=== PATIENT | female | born 1990 | race African-American/Black ===

== ENCOUNTER 2018-01-10 11:04 | Inpatient (IN) ==
[2018-01-10] MEDS ORDERED: hydrALAZINE 20 MG/1 ML VIAL IV STA (12:14)
[2018-01-10 12:26] LABS: Basophils # 0.1 10*3/uL (0.0-0.2); Basophils % 0.4 % (0.0-0.8); Eosinophils # 0.2 10*3/uL (0.0-0.87); Eosinophils % 1.6 % (0.00-10.9); Hematocrit 30.6 VOL% (35.7-47.0); Hemoglobin 10.5 GM/DL (12.0-16.0); Immature Granulocytes % 0.6 %; Immature Granulocytes Absolute 0.08 #; Lymphocytes # 3.2 10*3/uL (1.4-4.0); Lymphocytes % 24.1 % (21.3-54.2); Mean Corpuscular HGB Conc 34.3 GM/DL (32-36); Mean Corpuscular Hemoglobin 31 PG (27-34); Mean Corpuscular Volume 91.3 FL (87-102); Mean Platelet Volume 9.3 FL (9.6-12.0); Monocytes # 0.8 10*3/uL (0.11-0.8); Monocytes % 5.8 % (1.7-12.7); Neutrophils % 67.5 % (38.7-73.9); Platelet Count 672 T/CUMM (130-400); Red Blood Count 3.35 MC/CUMM (3.8-5.5); Red Cell Distribution Width 11.9 % (9.3-17.3); White Blood Count 13.3 T/CUMM (4-12)
[2018-01-10] MEDS ORDERED: SODIUM CHLORIDE 0.9% 1,000 ML IV STA (12:26)
[2018-01-10 12:37] LABS: Apearance,Urine CLEAR (Clear); Bacteria,Urine Occasional /HPF (Few); Bilirubin,Urine Negative (Negative); Blood, Urine Small mg/dL (Negative); Glucose,Urine (UA) >=500 mg/dL (Negative); Ketones,Urine Negative (Negative); Mucus,Urine Occasional /LPF (Occasional); Nitrite,Urine Negative (Negative); Protein,Urine 100 MG/DL; RBC,Urine 16 /HPF (0-4); Squamous Epithelial Cell,Urine Occasional /HPF (0-10); Urine Color Straw (Yellow); Urine Specific Gravity 1.009 (1.001-1.035); Urine Urobilinogen < 2.0 EU/DL (0.2-1.0); WBC,Urine <1 /HPF (0-6)
[2018-01-10] MEDS ORDERED: INSULIN REGULAR 100 UNIT/ML IV STA ×2 (12:37→14:16)
[2018-01-10 12:53] LABS: Alanine Aminotransferase 30 U/L (13-56); Albumin 2.9 G/DL (3.4-5.0); Alkaline Phosphatase 156 U/L (45-117); Amylase 75 U/L (25-115); Aspartate Amino Transferase 21 U/L (0-37); Bilirubin,Total < 0.39 MG/DL (0.2-1.0); Blood Urea Nitrogen 32 MG/DL (7-18); Calcium 8.8 MG/DL (8.5-10.1); Osmolality,Calculated 289.9 MOS/KG (273-304); Potassium 4.6 MMOL/L (3.5-5.1); Sodium 129 MMOL/L (136-145); Total Protein 8.2 G/DL (6.4-8.3); Troponin I Only < 0.015 NG/ML (0.00-0.045)
[2018-01-10 12:56] LABS: Lactic Acid 1.7 MMOL/L (0.4-2.0)
[2018-01-10 13:03] LABS: Glucose 545 MG/DL (74-106)
[2018-01-10] MEDS ORDERED: PROMETHAZINE 25 MG/1 ML VIAL ONE (13:13)
[2018-01-10] MEDS ORDERED: PROMETHAZINE 25 MG/1 ML VIAL IM STA (13:21)
[2018-01-10 13:32] LABS: ABG Base Excess -5.8 MMOL/L (-2.5-2.5); ABG HCO3 19.6 MMOL/L (20-26); ABG Oxygen Saturation 98.9 % (95-100); ABG PCO2 28.5 MM HG (35-48); ABG PH 7.407 (7.35-7.45); ABG TCO2 16.5 MMOL/L (23-27); Pt O2 Delivery Device Room Air
[2018-01-10] MEDS ORDERED: ACETAMINOPHEN 325 MG TABLET PO PRN (14:46)
[2018-01-10] MEDS ORDERED: GLUCAGON 1 MG VIAL IM PRN (14:46)
[2018-01-10] MEDS ORDERED: DEXTROSE 50% 25 GM/50 ML VIAL IV PRN (14:46)
[2018-01-10 16:36] LABS: HIV Antigen/Antibody Result Nonreactive (Nonreactive)
[2018-01-10] MEDS: INSULIN LISPRO 100 UNIT/ML SUBCUT SCH ×2 (17:14→21:25)
[2018-01-10] MEDS: MULTIVITAMIN (PRENATAL) TABLET PO SCH (17:30)
[2018-01-10] MEDS: SODIUM CHLORIDE 0.9% 1,000 ML IV SCH (17:30)
[2018-01-10 18:08] LABS: Barbiturates Screen,Urine Negative (Negative); Benzodiazepines Screen,Urine Negative (Negative); Cannabinoid Screen,Urine Positive (Negative); Opiate Screen,Urine Negative (Negative); Phencyclidine Screen,Urine Negative (Negative)
[2018-01-10] MEDS: cefTRIAXone 1,000 MG in SYRINGE 1 EACH IV SCH (18:11)
[2018-01-10 18:21] LABS: Calcium 7.9 MG/DL (8.5-10.1); Osmolality,Calculated 280.8 MOS/KG (273-304); Potassium 4.2 MMOL/L (3.5-5.1)
[2018-01-10] MEDS ORDERED: METHYLDOPA 250 MG TABLET PO SCH (21:00)
[2018-01-10] MEDS: ONDANSETRON 4 MG/2 ML VIAL IV PRN (21:17)
[2018-01-10] MEDS: LABETALOL 100 MG TABLET PO SCH (21:25)
[2018-01-10] MEDS: hydrALAZINE 20 MG/1 ML VIAL IV PRN (21:26)
[2018-01-10] MEDS ORDERED: PROMETHAZINE INJ 12.5 MG in SODIUM CHLORIDE 0.9% 50 ML IV PRN (23:01)
[2018-01-11] MEDS: INSULIN LISPRO 100 UNIT/ML SUBCUT SCH ×3 (00:12→09:23)
[2018-01-11] MEDS: SODIUM CHLORIDE 0.9% 1,000 ML IV SCH ×3 (01:13→18:25)
[2018-01-11 05:04] LABS: Alanine Aminotransferase 21 U/L (13-56); Albumin 2.2 G/DL (3.4-5.0); Alkaline Phosphatase 107 U/L (45-117); Aspartate Amino Transferase 20 U/L (0-37); Bilirubin,Total < 0.39 MG/DL (0.2-1.0); Blood Urea Nitrogen 28 MG/DL (7-18); Calcium 7.7 MG/DL (8.5-10.1); Glucose 141 MG/DL (74-106); Osmolality,Calculated 286.4 MOS/KG (273-304); Potassium 4.3 MMOL/L (3.5-5.1); Sodium 140 MMOL/L (136-145); Total Protein 5.8 G/DL (6.4-8.3)
[2018-01-11] MEDS: ONDANSETRON 4 MG/2 ML VIAL IV PRN (07:55)
[2018-01-11] MEDS: LABETALOL 100 MG TABLET PO SCH (09:23)
[2018-01-11 09:43] LABS: Basophils # 0.1 10*3/uL (0.0-0.2); Basophils % 0.4 % (0.0-0.8); Eosinophils # 0.1 10*3/uL (0.0-0.87); Hematocrit 26.8 VOL% (35.7-47.0); Immature Granulocytes % 0.4 %; Immature Granulocytes Absolute 0.06 #; Lymphocytes # 3.2 10*3/uL (1.4-4.0); Lymphocytes % 22.7 % (21.3-54.2); Mean Corpuscular HGB Conc 33.6 GM/DL (32-36); Mean Corpuscular Hemoglobin 32 PG (27-34); Mean Platelet Volume 9.3 FL (9.6-12.0); Monocytes # 0.8 10*3/uL (0.11-0.8); Neutrophils # 9.6 10*3/uL (1.4-7.4); Neutrophils % 69.5 % (38.7-73.9); Platelet Count 568 T/CUMM (130-400); Red Blood Count 2.82 MC/CUMM (3.8-5.5); Red Cell Distribution Width 12.1 % (9.3-17.3); White Blood Count 13.9 T/CUMM (4-12)
[2018-01-11] MEDS ORDERED: INSULIN ASPART PROTAMINE/ASPART 70/30 100 UNIT/ML SUBCUT SCH (10:00)
[2018-01-11 10:42] LABS: Apearance,Urine CLEAR (Clear); Bacteria,Urine Occasional /HPF (Few); Bilirubin,Urine Negative (Negative); Blood, Urine Small mg/dL (Negative); Glucose,Urine (UA) >=500 mg/dL (Negative); Ketones,Urine 20 mg/dL (Negative); Nitrite,Urine Negative (Negative); Protein,Urine 100 MG/DL; RBC,Urine 14 /HPF (0-4); Squamous Epithelial Cell,Urine Occasional /HPF (0-10); Urine Color Straw (Yellow); Urine Specific Gravity 1.008 (1.001-1.035); Urine Urobilinogen < 2.0 EU/DL (0.2-1.0); WBC,Urine 1 /HPF (0-6)
[2018-01-11] MEDS ORDERED: INSULIN LISPRO 100 UNIT/ML SUBCUT SCH (11:30)
[2018-01-11] MEDS: PROMETHAZINE 25 MG TABLET PO PRN ×2 (13:05→20:40)
[2018-01-11] MEDS: MULTIVITAMIN (PRENATAL) TABLET PO SCH (13:09)
[2018-01-11] MEDS: hydrALAZINE 20 MG/1 ML VIAL IV PRN (13:10)
[2018-01-11 13:20] LABS: Calcium 7.8 MG/DL (8.5-10.1); Osmolality,Calculated 287.1 MOS/KG (273-304); Potassium 4.5 MMOL/L (3.5-5.1)
[2018-01-11] MEDS: cefTRIAXone 1,000 MG in SYRINGE 1 EACH IV SCH (14:40)
[2018-01-11] MEDS: hydrALAZINE 25 MG TABLET PO SCH ×2 (16:55→20:40)
[2018-01-11] MEDS: INSULIN REGULAR 100 UNIT/ML SUBCUT SCH ×2 (16:55→20:41)
[2018-01-11] MEDS: INSULIN NPH 100 UNIT/ML SUBCUT SCH (16:55)
[2018-01-11] MEDS: LABETALOL 200 MG TABLET PO SCH (20:40)
[2018-01-12] MEDS: PROMETHAZINE 25 MG TABLET PO PRN ×2 (03:28→09:39)
[2018-01-12 08:21] LABS: Osmolality,Calculated 283.8 MOS/KG (273-304); Potassium 4.1 MMOL/L (3.5-5.1)
[2018-01-12] MEDS: INSULIN NPH 100 UNIT/ML SUBCUT SCH (09:37)
[2018-01-12] MEDS: hydrALAZINE 25 MG TABLET PO SCH ×2 (09:38→15:51)
[2018-01-12] MEDS: MULTIVITAMIN (PRENATAL) TABLET PO SCH (09:38)
[2018-01-12] MEDS: LABETALOL 200 MG TABLET PO SCH (09:38)
[2018-01-12] MEDS: INSULIN REGULAR 100 UNIT/ML SUBCUT SCH ×2 (09:38→12:14)
[2018-01-12 11:35] VITALS: BP 124/66
[2018-01-12] MEDS: SODIUM CHLORIDE 0.9% 1,000 ML IV SCH ×2 (12:15)
[2018-01-12] MEDS: cefTRIAXone 1,000 MG in SYRINGE 1 EACH IV SCH (15:51)
== END 2018-01-12 16:15 | disposition home or self-care (01) | DRG 566 ==
LOC: N.ED 11:04 → N.EDINP 14:17 → N.TELEN 15:06
PROVIDERS: ADMIT Internal Medicine; ATTEND Internal Medicine

== ENCOUNTER 2018-01-31 21:07 | Inpatient (IN) ==
[2018-02-01] MEDS ORDERED: ONDANSETRON 4 MG/2 ML VIAL IV STA (00:10)
[2018-02-01] MEDS ORDERED: SODIUM CHLORIDE 0.9% 1,000 ML IV STA ×2 (00:10→01:42)
[2018-02-01] MEDS ORDERED: ACETAMINOPHEN 500 MG TABLET PO STA (00:10)
[2018-02-01 00:28] LABS: Alanine Aminotransferase 37 U/L (13-56); Albumin 2.5 G/DL (3.4-5.0); Alkaline Phosphatase 167 U/L (45-117); Aspartate Amino Transferase 19 U/L (0-37); Bilirubin,Total < 0.39 MG/DL (0.2-1.0); Blood Urea Nitrogen 22 MG/DL (7-18); Calcium 8.8 MG/DL (8.5-10.1); Glucose 286 MG/DL (74-106); Osmolality,Calculated 280.2 MOS/KG (273-304); Potassium 4.3 MMOL/L (3.5-5.1); Sodium 134 MMOL/L (136-145); Total Protein 7.1 G/DL (6.4-8.3)
[2018-02-01 00:37] LABS: Basophils # 0.1 10*3/uL (0.0-0.2); Basophils % 0.4 % (0.0-0.8); Eosinophils # 0.2 10*3/uL (0.0-0.87); Eosinophils % 1.2 % (0.00-10.9); Hematocrit 21.8 VOL% (35.7-47.0); Hemoglobin 7.3 GM/DL (12.0-16.0); Immature Granulocytes % 0.9 %; Immature Granulocytes Absolute 0.12 #; Lymphocytes # 2.9 10*3/uL (1.4-4.0); Lymphocytes % 21.5 % (21.3-54.2); Mean Corpuscular HGB Conc 33.5 GM/DL (32-36); Mean Corpuscular Hemoglobin 32 PG (27-34); Mean Platelet Volume 9.5 FL (9.6-12.0); Monocytes # 0.9 10*3/uL (0.11-0.8); Monocytes % 6.4 % (1.7-12.7); Neutrophils # 9.5 10*3/uL (1.4-7.4); Neutrophils % 69.6 % (38.7-73.9); Platelet Count 593 T/CUMM (130-400); Red Blood Count 2.32 MC/CUMM (3.8-5.5); Red Cell Distribution Width 12.5 % (9.3-17.3); White Blood Count 13.6 T/CUMM (4-12)
[2018-02-01] MEDS ORDERED: PROMETHAZINE INJ 25 MG in SODIUM CHLORIDE 0.9% 50 ML IV STA (01:53)
[2018-02-01 03:12] LABS: VBG Base Excess -11.9 MEQ/L (0-4); VBG HCO3 14.9 MEQ/L (24-28); VBG Oxygen Saturation 95.8 %; VBG PCO2 28.2 MMHG (41-51); VBG PH 7.293; VBG PO2 89.6 MMHG (17-40)
[2018-02-01 03:57] LABS: Apearance,Urine CLEAR (Clear); Bilirubin,Urine Negative (Negative); Blood, Urine Small mg/dL (Negative); Glucose,Urine (UA) >=500 mg/dL (Negative); Hyaline Casts,Urine 1 /LPF (0-3); Ketones,Urine 5 mg/dL (Negative); Mucus,Urine Occasional /LPF (Occasional); Nitrite,Urine Negative (Negative); Protein,Urine >=500 MG/DL; RBC,Urine 4 /HPF (0-4); Squamous Epithelial Cell,Urine Occasional /HPF (0-10); Urine Color Straw (Yellow); Urine Specific Gravity 1.009 (1.001-1.035); Urine Urobilinogen < 2.0 EU/DL (0.2-1.0); WBC,Urine <1 /HPF (0-6)
[2018-02-01 04:01] LABS: Barbiturates Screen,Urine Negative (Negative); Benzodiazepines Screen,Urine Negative (Negative); Cannabinoid Screen,Urine Positive (Negative); Opiate Screen,Urine Negative (Negative); Phencyclidine Screen,Urine Negative (Negative)
[2018-02-01] MEDS ORDERED: INSULIN REGULAR DRIP 100 ML IV PRN ×2 (04:05→05:30)
[2018-02-01] MEDS ORDERED: INSULIN REGULAR 100 UNIT/ML IV STA (04:05)
[2018-02-01] MEDS ORDERED: hydrALAZINE 20 MG/1 ML VIAL IV STA (04:20)
[2018-02-01] MEDS ORDERED: diphenhydrAMINE 50 MG/1 ML VIAL IV ONE (04:48)
[2018-02-01] MEDS ORDERED: hydrALAZINE 20 MG/1 ML VIAL IV ONE (04:51)
[2018-02-01] MEDS ORDERED: SODIUM BICARB INJ 100 MEQ in STERILE WATER INJ 400 ML IV PRN (04:53)
[2018-02-01] MEDS ORDERED: DEXTROSE 50% 25 GM/50 ML VIAL IV PRN ×3 (04:53→18:53)
[2018-02-01] MEDS ORDERED: MAGNESIUM SULF RIDER 4 GM in PREMIX 1 EACH IV PRN (04:53)
[2018-02-01] MEDS ORDERED: POTASSIUM CHLORIDE RIDER 10 MEQ in PREMIX 1 EACH IV PRN (04:53)
[2018-02-01] MEDS ORDERED: SODIUM PHOSPHATE INJ 15.9 MMOL in SODIUM CHLORIDE 0.9% 250 ML IV PRN (04:53)
[2018-02-01] MEDS ORDERED: ACETAMINOPHEN 325 MG TABLET PO PRN (05:13)
[2018-02-01] MEDS ORDERED: diphenhydrAMINE CAP 25 MG CAPSULE PO PRN (05:19)
[2018-02-01] MEDS: SODIUM CHLORIDE 0.9% 1,000 ML IV SCH ×2 (05:52→08:14)
[2018-02-01 06:21] LABS: ABG Base Excess -9.3 MMOL/L (-2.5-2.5); ABG HCO3 16.8 MMOL/L (20-26); ABG Oxygen Saturation 99.3 % (95-100); ABG PCO2 22.9 MM HG (35-48); ABG PH 7.407 (7.35-7.45); ABG TCO2 13.6 MMOL/L (23-27); Allen Test Positive; Pt O2 Delivery Device Room Air
[2018-02-01 07:02] LABS: Basophils % 0.3 % (0.0-0.8); Eosinophils # 0.1 10*3/uL (0.0-0.87); Eosinophils % 0.9 % (0.00-10.9); Hematocrit 21.5 VOL% (35.7-47.0); Hemoglobin 7.4 GM/DL (12.0-16.0); Immature Granulocytes % 0.4 %; Immature Granulocytes Absolute 0.05 #; Lymphocytes # 2.3 10*3/uL (1.4-4.0); Lymphocytes % 16.3 % (21.3-54.2); Mean Corpuscular HGB Conc 34.4 GM/DL (32-36); Mean Corpuscular Hemoglobin 33 PG (27-34); Mean Corpuscular Volume 94.7 FL (87-102); Mean Platelet Volume 8.9 FL (9.6-12.0); Monocytes # 0.8 10*3/uL (0.11-0.8); Monocytes % 5.5 % (1.7-12.7); Neutrophils # 10.6 10*3/uL (1.4-7.4); Neutrophils % 76.6 % (38.7-73.9); Platelet Count 542 T/CUMM (130-400); Red Blood Count 2.27 MC/CUMM (3.8-5.5); Red Cell Distribution Width 12.5 % (9.3-17.3); White Blood Count 13.8 T/CUMM (4-12)
[2018-02-01 07:19] LABS: % Iron Saturation 18.3 % (18-50); Ferritin 66.2 ng/ml (8-252)
[2018-02-01 07:25] LABS: Folate > 24.0 NG/ML (5.4-24.0); Vitamin B12 1009 PG/ML (211-911)
[2018-02-01 08:13] LABS: Calcium 8.2 MG/DL (8.5-10.1)
[2018-02-01 08:25] LABS: Sedimentation Rate-Westergren 138 MM/HR (0-20)
[2018-02-01 08:28] LABS: Hemoglobin A1 (Alkaline) 97.6 % (96.5-98.5); Hemoglobin A2 (Alkaline) 2.4 % (1.5-3.5)
[2018-02-01] MEDS ORDERED: SODIUM CHLORIDE 0.9% 1,000 ML IV SCH ×2 (09:53→13:30)
[2018-02-01 10:04] LABS: Calcium 7.9 MG/DL (8.5-10.1); Osmolality,Calculated 280.4 MOS/KG (273-304)
[2018-02-01] MEDS: hydrALAZINE 25 MG TABLET PO SCH ×3 (10:10→20:51)
[2018-02-01] MEDS: LABETALOL 200 MG TABLET PO SCH ×2 (10:11→20:51)
[2018-02-01] MEDS: PROMETHAZINE 25 MG/1 ML VIAL IM PRN ×3 (11:35→23:37)
[2018-02-01] MEDS: DEXTROSE 5% NACL 0.9% 1,000 ML IV SCH ×2 (11:45→19:01)
[2018-02-01] MEDS: MULTIVITAMIN (PRENATAL) TABLET PO SCH (11:56)
[2018-02-01 14:02] LABS: Calcium 8.1 MG/DL (8.5-10.1); Osmolality,Calculated 284.8 MOS/KG (273-304); Potassium 4.6 MMOL/L (3.5-5.1)
[2018-02-01] MEDS ORDERED: DEXT 5% NACL 0.45% KCL 20 MEQ 20 MEQ/1,000 ML BAG IV SCH (15:00)
[2018-02-01 17:40] LABS: Osmolality,Calculated 283.4 MOS/KG (273-304)
[2018-02-01] MEDS ORDERED: GLUCAGON 1 MG VIAL IM PRN (18:53)
[2018-02-01] MEDS ORDERED: POTASSIUM CHLORIDE 20 MEQ TABLET PO PRN (20:22)
[2018-02-01] MEDS: INSULIN REGULAR 100 UNIT/ML SUBCUT SCH (20:37)
[2018-02-01] MEDS: SODIUM CHLOR 0.45% KCL 20 MEQ 20 MEQ/1,000 ML BAG IV SCH (20:48)
[2018-02-01 21:52] LABS: Calcium 8.4 MG/DL (8.5-10.1); Potassium 4.5 MMOL/L (3.5-5.1)
[2018-02-01] MEDS ORDERED: SODIUM CHLORIDE 0.45% 1,000 ML IV SCH (21:53)
[2018-02-01] MEDS: hydrALAZINE 20 MG/1 ML VIAL IV PRN (22:04)
[2018-02-02] MEDS: INSULIN REGULAR 100 UNIT/ML SUBCUT SCH ×6 (00:01→20:59)
[2018-02-02 01:01] LABS: Osmolality,Calculated 286.1 MOS/KG (273-304); Potassium 4.7 MMOL/L (3.5-5.1)
[2018-02-02 01:26] LABS: Basophils # 0.1 10*3/uL (0.0-0.2); Basophils % 0.3 % (0.0-0.8); Eosinophils # 0.1 10*3/uL (0.0-0.87); Eosinophils % 0.5 % (0.00-10.9); Hematocrit 21.7 VOL% (35.7-47.0); Hemoglobin 7.1 GM/DL (12.0-16.0); Immature Granulocytes % 1.4 %; Immature Granulocytes Absolute 0.23 #; Lymphocytes # 2.3 10*3/uL (1.4-4.0); Mean Corpuscular HGB Conc 32.7 GM/DL (32-36); Mean Corpuscular Hemoglobin 32 PG (27-34); Mean Corpuscular Volume 96.9 FL (87-102); Mean Platelet Volume 9.3 FL (9.6-12.0); Neutrophils # 12.5 10*3/uL (1.4-7.4); Neutrophils % 77.8 % (38.7-73.9); Platelet Count 554 T/CUMM (130-400); Red Blood Count 2.24 MC/CUMM (3.8-5.5); Red Cell Distribution Width 12.7 % (9.3-17.3); White Blood Count 16.1 T/CUMM (4-12)
[2018-02-02] MEDS: MAGNESIUM SULF RIDER 2 GM in PREMIX 1 EACH IV PRN ×2 (01:51→08:25)
[2018-02-02] MEDS: SODIUM CHLOR 0.45% KCL 20 MEQ 20 MEQ/1,000 ML BAG IV SCH (03:30)
[2018-02-02] MEDS ORDERED: MAGNESIUM SULF RIDER 4 GM in PREMIX 1 EACH IV ONE (07:51)
[2018-02-02] MEDS: PROMETHAZINE 25 MG/1 ML VIAL IM PRN ×3 (08:20→21:22)
[2018-02-02] MEDS: DEXTROSE 5% NACL 0.9% 1,000 ML IV SCH ×2 (08:24→20:10)
[2018-02-02] MEDS: SODIUM BICARBONATE 650 MG TABLET PO SCH ×3 (08:28→20:59)
[2018-02-02] MEDS: hydrALAZINE 25 MG TABLET PO SCH ×3 (08:28→20:59)
[2018-02-02] MEDS: MULTIVITAMIN (PRENATAL) TABLET PO SCH (08:28)
[2018-02-02] MEDS: FLUCONAZOLE 150 MG TABLET PO SCH (08:28)
[2018-02-02] MEDS: LABETALOL 200 MG TABLET PO SCH ×2 (08:28→20:59)
[2018-02-02 14:46] LABS: Osmolality,Calculated 281.1 MOS/KG (273-304); Potassium 4.5 MMOL/L (3.5-5.1)
[2018-02-02] MEDS: hydrALAZINE 20 MG/1 ML VIAL IV PRN (15:42)
[2018-02-03] MEDS: INSULIN REGULAR 100 UNIT/ML SUBCUT SCH ×6 (00:59→20:10)
[2018-02-03] MEDS: PROMETHAZINE 25 MG/1 ML VIAL IM PRN ×4 (03:22→22:07)
[2018-02-03 03:54] LABS: Calcium 8.1 MG/DL (8.5-10.1); Osmolality,Calculated 283.5 MOS/KG (273-304); Potassium 4.3 MMOL/L (3.5-5.1)
[2018-02-03] MEDS: DEXTROSE 5% NACL 0.9% 1,000 ML IV SCH ×3 (04:05→14:45)
[2018-02-03] MEDS: FLUCONAZOLE 150 MG TABLET PO SCH (08:55)
[2018-02-03] MEDS: LABETALOL 200 MG TABLET PO SCH ×2 (08:55→22:04)
[2018-02-03] MEDS: SODIUM BICARBONATE 650 MG TABLET PO SCH ×3 (08:55→22:04)
[2018-02-03] MEDS: hydrALAZINE 25 MG TABLET PO SCH ×3 (08:55→22:04)
[2018-02-03] MEDS: MULTIVITAMIN (PRENATAL) TABLET PO SCH (08:55)
[2018-02-03] MEDS: NIFEdipine 10 MG CAPSULE PO PRN (19:52)
[2018-02-04] MEDS: INSULIN REGULAR 100 UNIT/ML SUBCUT SCH ×3 (00:06→07:53)
[2018-02-04] MEDS: NIFEdipine 10 MG CAPSULE PO PRN (04:15)
[2018-02-04 08:16] LABS: Calcium 7.9 MG/DL (8.5-10.1); Osmolality,Calculated 283.4 MOS/KG (273-304); Potassium 4.4 MMOL/L (3.5-5.1)
[2018-02-04] MEDS ORDERED: GLUCAGON 1 MG VIAL IM PRN (08:47)
[2018-02-04] MEDS ORDERED: DEXTROSE 50% 25 GM/50 ML VIAL IV PRN (08:47)
[2018-02-04] MEDS: PROMETHAZINE 25 MG/1 ML VIAL IM PRN ×2 (09:32→20:02)
[2018-02-04] MEDS: LABETALOL 200 MG TABLET PO SCH ×2 (09:32→21:58)
[2018-02-04] MEDS: MULTIVITAMIN (PRENATAL) TABLET PO SCH (09:32)
[2018-02-04] MEDS: FLUCONAZOLE 150 MG TABLET PO SCH (09:33)
[2018-02-04] MEDS: hydrALAZINE 25 MG TABLET PO SCH ×3 (09:33→21:58)
[2018-02-04] MEDS: SODIUM BICARBONATE 650 MG TABLET PO SCH ×3 (09:33→21:57)
[2018-02-04] MEDS: DEXTROSE 5% NACL 0.9% 1,000 ML IV SCH (10:44)
[2018-02-04] MEDS: INSULIN LISPRO 100 UNIT/ML SUBCUT SCH ×3 (12:21→19:53)
[2018-02-04] MEDS ORDERED: INSULIN LISPRO 100 UNIT/ML SUBCUT SCH (14:00)
[2018-02-04 16:49] LABS: Calcium 7.7 MG/DL (8.5-10.1); Osmolality,Calculated 284.5 MOS/KG (273-304); Potassium 4.3 MMOL/L (3.5-5.1)
[2018-02-04] MEDS ORDERED: INSULIN LISPRO 100 UNIT/ML SUBCUT ONE (23:00)
[2018-02-05] MEDS: INSULIN LISPRO 100 UNIT/ML SUBCUT SCH ×6 (00:47→20:12)
[2018-02-05] MEDS: NIFEdipine 10 MG CAPSULE PO PRN ×2 (00:54→04:33)
[2018-02-05] MEDS: PROMETHAZINE 25 MG/1 ML VIAL IM PRN (04:22)
[2018-02-05 06:49] LABS: Calcium 8.3 MG/DL (8.5-10.1); Calcium 8.4 MG/DL (8.5-10.1); Osmolality,Calculated 282.7 MOS/KG (273-304); Osmolality,Calculated 283.7 MOS/KG (273-304); Potassium 3.8 MMOL/L (3.5-5.1)
[2018-02-05 09:16] LABS: Basophils % 0.3 % (0.0-0.8); Eosinophils # 0.3 10*3/uL (0.0-0.87); Eosinophils % 2.4 % (0.00-10.9); Hematocrit 20.4 VOL% (35.7-47.0); Immature Granulocytes % 0.5 %; Immature Granulocytes Absolute 0.06 #; Lymphocytes # 3.8 10*3/uL (1.4-4.0); Lymphocytes % 28.6 % (21.3-54.2); Mean Corpuscular HGB Conc 34.3 GM/DL (32-36); Mean Corpuscular Hemoglobin 31 PG (27-34); Mean Corpuscular Volume 91.5 FL (87-102); Mean Platelet Volume 8.7 FL (9.6-12.0); Monocytes # 0.9 10*3/uL (0.11-0.8); Monocytes % 6.8 % (1.7-12.7); Neutrophils # 8.1 10*3/uL (1.4-7.4); Neutrophils % 61.4 % (38.7-73.9); Platelet Count 516 T/CUMM (130-400); Red Blood Count 2.23 MC/CUMM (3.8-5.5); Red Cell Distribution Width 12.6 % (9.3-17.3); White Blood Count 13.1 T/CUMM (4-12)
[2018-02-05] MEDS: LABETALOL 200 MG TABLET PO SCH ×3 (09:45→21:28)
[2018-02-05] MEDS: hydrALAZINE 25 MG TABLET PO SCH ×4 (09:45→21:28)
[2018-02-05] MEDS: SODIUM BICARBONATE 650 MG TABLET PO SCH ×4 (09:45→21:28)
[2018-02-05] MEDS: MULTIVITAMIN (PRENATAL) TABLET PO SCH (09:47)
[2018-02-05] MEDS: amLODIPine 5 MG TABLET PO SCH (09:47)
[2018-02-05] MEDS ORDERED: ONDANSETRON 4 MG TABLET PO PRN (09:56)
[2018-02-05] MEDS: PROMETHAZINE 25 MG TABLET PO PRN ×2 (12:13→20:24)
[2018-02-05 17:20] LABS: Apearance,Urine Slightly Hazy (Clear); Bacteria,Urine Occasional /HPF (Few); Bilirubin,Urine Negative (Negative); Blood, Urine Small mg/dL (Negative); Glucose,Urine (UA) 150 mg/dL (Negative); Ketones,Urine Negative (Negative); Mucus,Urine Occasional /LPF (Occasional); Nitrite,Urine Negative (Negative); Protein,Urine >=500 MG/DL; RBC,Urine 8 /HPF (0-4); Squamous Epithelial Cell,Urine Occasional /HPF (0-10); Urine Color Yellow (Yellow); Urine Specific Gravity 1.007 (1.001-1.035); Urine Urobilinogen < 2.0 EU/DL (0.2-1.0); WBC,Urine 2 /HPF (0-6)
[2018-02-06] MEDS: NIFEdipine 10 MG CAPSULE PO PRN (00:09)
[2018-02-06] MEDS: INSULIN LISPRO 100 UNIT/ML SUBCUT SCH ×4 (02:38→12:41)
[2018-02-06 06:52] LABS: Calcium 8.1 MG/DL (8.5-10.1); Osmolality,Calculated 284.7 MOS/KG (273-304); Potassium 4.2 MMOL/L (3.5-5.1)
[2018-02-06] MEDS: PROMETHAZINE 25 MG TABLET PO PRN (07:51)
[2018-02-06] MEDS: amLODIPine 5 MG TABLET PO SCH ×2 (08:15→09:39)
[2018-02-06] MEDS: LABETALOL 200 MG TABLET PO SCH (08:15)
[2018-02-06] MEDS: SODIUM BICARBONATE 650 MG TABLET PO SCH (08:15)
[2018-02-06] MEDS: hydrALAZINE 25 MG TABLET PO SCH (08:15)
[2018-02-06] MEDS: MULTIVITAMIN (PRENATAL) TABLET PO SCH (08:15)
[2018-02-06] MEDS ORDERED: amLODIPine 10 MG TABLET PO SCH (09:05)
[2018-02-06] MEDS ORDERED: IRON (CARBONYL)/VIT C/B12/FA TABLET PO SCH (09:30)
[2018-02-06 09:58] VITALS: BP 146/76
== END 2018-02-06 14:15 | disposition home or self-care (01) | DRG 566 ==
LOC: N.ED 21:07 → N.EDINP 02-01 04:46 → SUATTDRO 02-01 04:46 → N.CC 02-01 07:08 → N.OB 02-03 14:58
PROVIDERS: ADMIT Internal Medicine; ATTEND Internal Medicine

== ENCOUNTER 2019-01-10 13:53 | Inpatient (IN) ==
[2019-01-10] MEDS ORDERED: diphenhydrAMINE 50 MG/1 ML VIAL IV STA (15:58)
[2019-01-10] MEDS ORDERED: methylPREDNISolone SOD SUC 125 MG/2 ML VIAL IV STA (16:05)
[2019-01-10] MEDS ORDERED: FAMOTIDINE 20 MG/2 ML VIAL IV STA (16:05)
[2019-01-10] MEDS ORDERED: FAMOTIDINE 20 MG/2 ML VIAL IV ONE (16:25)
[2019-01-10] MEDS ORDERED: hydrALAZINE 20 MG/1 ML VIAL IV STA ×2 (16:41→17:08)
[2019-01-10] MEDS ORDERED: hydrALAZINE 20 MG/1 ML VIAL ONE ×2 (16:45→17:15)
[2019-01-10] MEDS ORDERED: METOCLOPRAMIDE 10 MG/2 ML VIAL IV STA (17:08)
[2019-01-10 17:17] LABS: Apearance,Urine CLEAR (Clear); Bacteria,Urine Occasional /HPF (Few); Bilirubin,Urine Negative (Negative); Blood, Urine Negative (Negative); Glucose,Urine (UA) 150 mg/dL (Negative); Hyaline Casts,Urine 1 /LPF (0-3); Ketones,Urine 5 mg/dL (Negative); Mucus,Urine Occasional /LPF (Occasional); Nitrite,Urine Negative (Negative); Protein,Urine >=500 MG/DL; RBC,Urine 7 /HPF (0-4); Squamous Epithelial Cell,Urine Occasional /HPF (0-10); Urine Color Yellow (Yellow); Urine Specific Gravity 1.012 (1.001-1.035); Urine Urobilinogen < 2.0 EU/DL (0.2-1.0); WBC,Urine 2 /HPF (0-6)
[2019-01-10 17:22] LABS: Barbiturates Screen,Urine Negative (Negative); Benzodiazepines Screen,Urine Negative (Negative); Cannabinoid Screen,Urine Positive (Negative); Opiate Screen,Urine Positive (Negative); Phencyclidine Screen,Urine Negative (Negative)
[2019-01-10 17:30] LABS: Basophils % 0.2 % (0.0-0.8); Eosinophils # 1.3 10*3/uL (0.0-0.87); Eosinophils % 10.3 % (0.00-10.9); Hematocrit 33.1 VOL% (35.7-47.0); Hemoglobin 10.2 GM/DL (12.0-16.0); Immature Granulocytes % 0.6 %; Immature Granulocytes Absolute 0.07 #; Lymphocytes # 1.6 10*3/uL (1.4-4.0); Lymphocytes % 12.6 % (21.3-54.2); Mean Corpuscular HGB Conc 30.8 GM/DL (32-36); Mean Corpuscular Volume 102.5 FL (87-102); Mean Platelet Volume 8.3 FL (9.6-12.0); Monocytes % 4.3 % (1.7-12.7); Platelet Count 479 T/CUMM (130-400); Red Blood Count 3.23 MC/CUMM (3.8-5.5); Red Cell Distribution Width 15.4 % (9.3-17.3); White Blood Count 12.3 T/CUMM (4-12)
[2019-01-10 17:51] LABS: Calcium 8.6 MG/DL (8.5-10.1); Osmolality,Calculated 291.5 MOS/KG (273-304)
[2019-01-10] MEDS ORDERED: DEXTROSE 10% 25 GM/250 ML BAG IV PRN (18:02)
[2019-01-10] MEDS ORDERED: GLUCAGON 1 MG VIAL IM PRN ×2 (18:02→18:04)
[2019-01-10] MEDS ORDERED: ACETAMINOPHEN 325 MG TABLET PO PRN (18:04)
[2019-01-10] MEDS ORDERED: ONDANSETRON 4 MG/2 ML VIAL IV PRN (18:04)
[2019-01-10] MEDS ORDERED: DEXTROSE 50% 25 GM/50 ML VIAL IV PRN (18:04)
[2019-01-10] MEDS ORDERED: ALBUTEROL 2.5 MG/3 ML NEB RESP TX PRN (18:04)
[2019-01-10] MEDS ORDERED: NICOTINE 21 MG/24 HR PATCH TRANSDERM PRN (18:04)
[2019-01-10 19:00] LABS: Eosinophils 9 % (0-10); Lymphocytes 12 % (20-55); Nucleated Red Blood Cells 1 (0-5); Segmented Neutrophils 78 % (50-85); Total Cells Counted 100
[2019-01-10 19:01] LABS: Hypochromasia Slight; Macrocytosis 1+; Platelet Estimate Adequate
[2019-01-10] MEDS ORDERED: FAMOTIDINE INJ 40 MG in SODIUM CHLORIDE 0.9% 100 ML IV SCH (20:00)
[2019-01-10] MEDS: diphenhydrAMINE 50 MG/1 ML VIAL IV SCH (20:13)
[2019-01-10] MEDS: hydrALAZINE 25 MG TABLET PO SCH (20:13)
[2019-01-10] MEDS: methylPREDNISolone SOD SUC 40 MG/1 ML VIAL IV SCH (20:16)
[2019-01-10] MEDS: niCARdipine INJ 25 MG in SODIUM CHLORIDE 0.9% 240 ML IV PRN (20:55)
[2019-01-10] MEDS: INSULIN REGULAR 100 UNIT/ML SUBCUT SCH (22:16)
[2019-01-10] MEDS: INSULIN GLARGINE 100 UNIT/ML SUBCUT SCH (22:17)
[2019-01-10] MEDS: BENZOCAINE 20% ORAL GEL 11.9 GM TUBE TOP PRN (23:40)
[2019-01-11] MEDS: METOCLOPRAMIDE 10 MG/2 ML VIAL IV PRN ×2 (00:36→07:19)
[2019-01-11] MEDS: methylPREDNISolone SOD SUC 40 MG/1 ML VIAL IV SCH ×2 (00:40→06:37)
[2019-01-11] MEDS: diphenhydrAMINE 50 MG/1 ML VIAL IV SCH (03:25)
[2019-01-11] MEDS: niCARdipine INJ 25 MG in SODIUM CHLORIDE 0.9% 240 ML IV PRN ×3 (03:57→18:38)
[2019-01-11 05:57] LABS: Basophils % 0.2 % (0.0-0.8); Immature Granulocytes % 0.5 %; Immature Granulocytes Absolute 0.06 #; Lymphocytes # 0.8 10*3/uL (1.4-4.0); Lymphocytes % 7.3 % (21.3-54.2); Mean Corpuscular HGB Conc 32.3 GM/DL (32-36); Mean Corpuscular Volume 100.6 FL (87-102); Mean Platelet Volume 8.7 FL (9.6-12.0); Platelet Count 509 T/CUMM (130-400); Red Blood Count 3.08 MC/CUMM (3.8-5.5); Red Cell Distribution Width 15.2 % (9.3-17.3); White Blood Count 11.1 T/CUMM (4-12)
[2019-01-11 06:30] LABS: Lymphocytes 5 % (20-55); Nucleated Red Blood Cells 1 (0-5); Platelet Estimate Increased; Segmented Neutrophils 95 % (50-85); Total Cells Counted 100
[2019-01-11 06:31] LABS: Hypochromasia 1+
[2019-01-11 06:32] LABS: Macrocytosis Slight
[2019-01-11] MEDS: BENZOCAINE 20% ORAL GEL 11.9 GM TUBE TOP PRN (06:37)
[2019-01-11 06:58] LABS: Albumin 2.5 G/DL (3.4-5.0); Bilirubin,Total 0.6 MG/DL (0.2-1.0); Calcium 8.8 MG/DL (8.5-10.1); Osmolality,Calculated 299.7 MOS/KG (273-304); Total Protein 7.4 G/DL (6.4-8.3)
[2019-01-11] MEDS: INSULIN REGULAR 100 UNIT/ML SUBCUT SCH ×6 (07:18→22:50)
[2019-01-11] MEDS ORDERED: LACTATED RINGERS 2,000 ML IV ONE (07:35)
[2019-01-11] MEDS ORDERED: cloNIDine 0.1 MG TABLET PO PRN (07:36)
[2019-01-11] MEDS ORDERED: methylPREDNISolone SOD SUC 40 MG/1 ML VIAL IV SCH (08:00)
[2019-01-11] MEDS: hydrALAZINE 25 MG TABLET PO SCH ×3 (09:12→20:56)
[2019-01-11] MEDS: diphenhydrAMINE CAP 25 MG CAPSULE PO SCH ×3 (09:12→20:56)
[2019-01-11] MEDS: amLODIPine 10 MG TABLET PO SCH (09:12)
[2019-01-11] MEDS: FAMOTIDINE 20 MG TABLET PO SCH (09:13)
[2019-01-11] MEDS: LACTATED RINGERS 1,000 ML IV SCH ×4 (09:39→18:07)
[2019-01-11] MEDS ORDERED: SODIUM CHLORIDE 0.9% 1,000 ML IV ONE (09:39)
[2019-01-11] MEDS: IRON (CARBONYL)/VIT C/B12/FA TABLET PO SCH (11:00)
[2019-01-11] MEDS: TRIAMCINOLONE 0.025% CREAM 15 GM TUBE TOP SCH ×2 (18:37→20:58)
[2019-01-11] MEDS: INSULIN GLARGINE 100 UNIT/ML SUBCUT SCH (20:57)
[2019-01-12] MEDS: niCARdipine INJ 25 MG in SODIUM CHLORIDE 0.9% 240 ML IV PRN ×2 (00:34→05:04)
[2019-01-12] MEDS: diphenhydrAMINE CAP 25 MG CAPSULE PO SCH ×4 (02:31→21:13)
[2019-01-12] MEDS: INSULIN REGULAR 100 UNIT/ML SUBCUT SCH ×2 (02:31→06:26)
[2019-01-12] MEDS ORDERED: INSULIN REGULAR 100 UNIT/ML SUBCUT SCH (08:00)
[2019-01-12] MEDS: LACTATED RINGERS 1,000 ML IV SCH ×3 (08:23→11:19)
[2019-01-12] MEDS ORDERED: PERMETHRIN 1% LOTION 59 ML BOTTLE TOP ONE (08:48)
[2019-01-12 08:54] LABS: Alanine Aminotransferase 25 U/L (13-56); Albumin 2.6 G/DL (3.4-5.0); Alkaline Phosphatase 145 U/L (45-117); Aspartate Amino Transferase 21 U/L (0-37); Bilirubin,Total < 0.39 MG/DL (0.2-1.0); Blood Urea Nitrogen 21 MG/DL (7-18); Calcium 8.4 MG/DL (8.5-10.1); Glucose 119 MG/DL (74-106); Osmolality,Calculated 282.4 MOS/KG (273-304); Total Protein 7.4 G/DL (6.4-8.3)
[2019-01-12] MEDS: CARVEDILOL 6.25 MG TABLET PO SCH ×2 (08:59→21:14)
[2019-01-12] MEDS: amLODIPine 10 MG TABLET PO SCH (08:59)
[2019-01-12] MEDS: FAMOTIDINE 20 MG TABLET PO SCH (09:00)
[2019-01-12] MEDS ORDERED: methylPREDNISolone SOD SUC 40 MG/1 ML VIAL IV SCH (09:00)
[2019-01-12] MEDS: hydrALAZINE 25 MG TABLET PO SCH ×3 (09:00→21:13)
[2019-01-12] MEDS: cloNIDine 0.1 MG TABLET PO SCH ×2 (09:00→21:13)
[2019-01-12] MEDS: IRON (CARBONYL)/VIT C/B12/FA TABLET PO SCH (09:04)
[2019-01-12] MEDS: TRIAMCINOLONE 0.025% CREAM 15 GM TUBE TOP SCH ×4 (10:22→21:14)
[2019-01-12] MEDS: INSULIN LISPRO 100 UNIT/ML SUBCUT SCH ×3 (11:33→21:14)
[2019-01-12] MEDS: PERMETHRIN 5% CREAM 60 GM TUBE TOP ONE ×2 (13:16→14:26)
[2019-01-12] MEDS: NIFEdipine 10 MG CAPSULE PO PRN (15:14)
[2019-01-12] MEDS ORDERED: POTASSIUM CHLORIDE 20 MEQ TABLET PO SCH (16:00)
[2019-01-12] MEDS: INSULIN GLARGINE 100 UNIT/ML SUBCUT SCH (21:14)
[2019-01-13] MEDS: diphenhydrAMINE CAP 25 MG CAPSULE PO SCH ×3 (01:01→13:57)
[2019-01-13] MEDS: LACTATED RINGERS 1,000 ML IV SCH (04:23)
[2019-01-13 05:01] LABS: Basophils % 0.3 % (0.0-0.8); Eosinophils # 1.3 10*3/uL (0.0-0.87); Eosinophils % 9.5 % (0.00-10.9); Hematocrit 25.7 VOL% (35.7-47.0); Hemoglobin 8.1 GM/DL (12.0-16.0); Immature Granulocytes % 0.4 %; Immature Granulocytes Absolute 0.06 #; Lymphocytes # 2.8 10*3/uL (1.4-4.0); Lymphocytes % 20.5 % (21.3-54.2); Mean Corpuscular HGB Conc 31.5 GM/DL (32-36); Mean Corpuscular Volume 100.4 FL (87-102); Mean Platelet Volume 8.6 FL (9.6-12.0); Monocytes % 6.7 % (1.7-12.7); Neutrophils % 62.6 % (38.7-73.9); Platelet Count 429 T/CUMM (130-400); Red Blood Count 2.56 MC/CUMM (3.8-5.5); Red Cell Distribution Width 15.1 % (9.3-17.3); White Blood Count 13.5 T/CUMM (4-12)
[2019-01-13 05:16] LABS: Calcium 8.1 MG/DL (8.5-10.1); Osmolality,Calculated 282.3 MOS/KG (273-304)
[2019-01-13 06:08] VITALS: BP 170/98
[2019-01-13] MEDS: INSULIN LISPRO 100 UNIT/ML SUBCUT SCH ×3 (08:23→16:03)
[2019-01-13] MEDS: TRIAMCINOLONE 0.025% CREAM 15 GM TUBE TOP SCH ×2 (09:31→13:56)
[2019-01-13] MEDS: IRON (CARBONYL)/VIT C/B12/FA TABLET PO SCH (09:32)
[2019-01-13] MEDS: CARVEDILOL 6.25 MG TABLET PO SCH (09:32)
[2019-01-13] MEDS: hydrALAZINE 25 MG TABLET PO SCH ×2 (09:32→14:20)
[2019-01-13] MEDS: amLODIPine 10 MG TABLET PO SCH (09:32)
[2019-01-13] MEDS: FAMOTIDINE 20 MG TABLET PO SCH (09:32)
[2019-01-13] MEDS: METOCLOPRAMIDE 10 MG/2 ML VIAL IV PRN ×2 (10:08→15:22)
[2019-01-13] MEDS: NIFEdipine 10 MG CAPSULE PO PRN ×2 (10:57→15:22)
== END 2019-01-13 16:17 | disposition home or self-care (01) | DRG 811 ==
LOC: N.EDINP 13:53 → N.ED 13:53 → N.EDINP 18:38 → N.ICU 19:17 → SUATTDRO 01-11 09:03
PROVIDERS: ADMIT Internal Medicine; ATTEND Internal Medicine Cardiovascular Disease

== ENCOUNTER 2019-04-16 17:12 | Inpatient (IN) ==
[2019-04-16] MEDS ORDERED: ONDANSETRON 4 MG/2 ML VIAL IV STA (18:00)
[2019-04-16] MEDS ORDERED: METOCLOPRAMIDE 10 MG/2 ML VIAL IV STA (18:00)
[2019-04-16] MEDS ORDERED: DICYCLOMINE 20 MG/2 ML AMP IM ONE (18:00)
[2019-04-16] MEDS ORDERED: hydrALAZINE 20 MG/1 ML VIAL IV STA (18:03)
[2019-04-16 18:14] LABS: Basophils # 0.1 10*3/uL (0.0-0.2); Basophils % 0.3 % (0.0-0.8); Eosinophils # 0.6 10*3/uL (0.0-0.87); Eosinophils % 3.3 % (0.00-10.9); Hematocrit 21.1 VOL% (35.7-47.0); Immature Granulocytes % 0.6 %; Lymphocytes # 1.5 10*3/uL (1.4-4.0); Lymphocytes % 8.3 % (21.3-54.2); Mean Corpuscular HGB Conc 33.2 GM/DL (32-36); Mean Corpuscular Volume 101.4 FL (87-102); Monocytes % 3.7 % (1.7-12.7); Neutrophils % 83.8 % (38.7-73.9); Platelet Count 608 T/CUMM (130-400); Red Blood Count 2.08 MC/CUMM (3.8-5.5); White Blood Count 17.7 T/CUMM (4-12)
[2019-04-16 18:15] LABS: Apearance,Urine CLEAR (Clear); Bilirubin,Urine Negative (Negative); Blood, Urine Negative (Negative); Glucose,Urine (UA) 150 mg/dL (Negative); Ketones,Urine Negative (Negative); Nitrite,Urine Negative (Negative); Protein,Urine >=500 MG/DL; RBC,Urine 15 /HPF (0-4); Squamous Epithelial Cell,Urine Occasional /HPF (0-10); Urine Color Yellow (Yellow); Urine Specific Gravity 1.011 (1.001-1.035); Urine Urobilinogen < 2.0 EU/DL (0.2-1.0); WBC,Urine 5 /HPF (0-6)
[2019-04-16 18:27] LABS: Alanine Aminotransferase 56 U/L (13-56); Albumin 2.9 G/DL (3.4-5.0); Alkaline Phosphatase 165 U/L (45-117); Amylase 48 U/L (25-115); Aspartate Amino Transferase 39 U/L (0-37); Blood Urea Nitrogen 48 MG/DL (7-18); Calcium 9.3 MG/DL (8.5-10.1); Estimated Glom Filtration Rate 5 ML/MIN; Glucose 77 MG/DL (74-106); Total Protein 7.4 G/DL (6.4-8.3)
[2019-04-16 18:45] LABS: Barbiturates Screen,Urine Negative (Negative); Benzodiazepines Screen,Urine Negative (Negative); Cannabinoid Screen,Urine Positive (Negative); Opiate Screen,Urine Positive (Negative); Phencyclidine Screen,Urine Negative (Negative)
[2019-04-16] MEDS ORDERED: PROMETHAZINE 25 MG/1 ML VIAL IM STA (19:19)
[2019-04-16] MEDS ORDERED: HYDROmorphone 2 MG/1 ML VIAL IV STA (20:57)
[2019-04-16] MEDS ORDERED: DEXTROSE 50% 25 GM/50 ML VIAL IV PRN (22:10)
[2019-04-16] MEDS ORDERED: GLUCAGON 1 MG VIAL IM PRN (22:10)
[2019-04-16] MEDS: HYDROmorphone 2 MG/1 ML VIAL IV PRN (22:40)
[2019-04-16 22:50] LABS: Basophils # 0.1 10*3/uL (0.0-0.2); Basophils % 0.4 % (0.0-0.8); Eosinophils # 0.4 10*3/uL (0.0-0.87); Eosinophils % 2.2 % (0.00-10.9); Hemoglobin 6.9 GM/DL (12.0-16.0); Immature Granulocytes % 0.7 %; Immature Granulocytes Absolute 0.12 #; Lymphocytes # 2.1 10*3/uL (1.4-4.0); Lymphocytes % 12.7 % (21.3-54.2); Mean Corpuscular HGB Conc 31.4 GM/DL (32-36); Mean Corpuscular Volume 105.3 FL (87-102); Mean Platelet Volume 8.4 FL (9.6-12.0); Monocytes % 5.7 % (1.7-12.7); Neutrophils % 78.3 % (38.7-73.9); Platelet Count 560 T/CUMM (130-400); Red Blood Count 2.09 MC/CUMM (3.8-5.5); Red Cell Distribution Width 16.2 % (9.3-17.3); White Blood Count 16.7 T/CUMM (4-12)
[2019-04-16 23:11] LABS: Troponin I 0.018 NG/ML (0.00-0.045)
[2019-04-16 23:21] LABS: Folate 19.3 NG/ML (5.4-24.0); Vitamin B12 1114 PG/ML (211-911)
[2019-04-16] MEDS: PANTOPRAZOLE 40 MG VIAL IV SCH (23:41)
[2019-04-16] MEDS: carvediloL 6.25 MG TABLET PO SCH (23:43)
[2019-04-16] MEDS: PIPERACILLIN/TAZOBACTAM 3,375 MG in SODIUM CHLORIDE 0.9% 100 ML IV SCH (23:44)
[2019-04-17 00:04] LABS: Sedimentation Rate-Westergren 130 MM/HR (0-20)
[2019-04-17] MEDS: INSULIN LISPRO 100 UNIT/ML SUBCUT SCH ×5 (00:07→18:21)
[2019-04-17] MEDS: hydrOXYzine HCL 25 MG TABLET PO PRN ×3 (01:23→21:42)
[2019-04-17] MEDS ORDERED: VANCOMYCIN INJ 1,500 MG in SODIUM CHLORIDE 0.9% 500 ML IV ONE (04:00)
[2019-04-17] MEDS: HYDROmorphone 2 MG/1 ML VIAL IV PRN ×3 (04:30→20:27)
[2019-04-17 05:52] LABS: Hematocrit 19.1 VOL% (35.7-47.0)
[2019-04-17 06:00] LABS: Hemoglobin 6.2 GM/DL (12.0-16.0)
[2019-04-17] MEDS ORDERED: SODIUM CHLORIDE 0.9% 1,000 ML IV PRN ×2 (06:37→12:09)
[2019-04-17 09:51] LABS: Hematocrit 19.4 VOL% (35.7-47.0)
[2019-04-17] MEDS: PANTOPRAZOLE 40 MG VIAL IV SCH ×2 (09:54→21:47)
[2019-04-17] MEDS: carvediloL 6.25 MG TABLET PO SCH ×2 (09:54→17:33)
[2019-04-17 09:59] LABS: Hemoglobin 6.2 GM/DL (12.0-16.0)
[2019-04-17 10:24] LABS: Troponin I < 0.015 NG/ML (0.00-0.045)
[2019-04-17 10:45] LABS: Hemoglobin A1 (Alkaline) 97.4 % (96.5-98.5); Hemoglobin A2 (Alkaline) 2.6 % (1.5-3.5)
[2019-04-17] MEDS: PIPERACILLIN/TAZOBACTAM 3,375 MG in SODIUM CHLORIDE 0.9% 100 ML IV SCH ×2 (15:28→21:50)
[2019-04-17] MEDS ORDERED: HEPARIN 10,000 UNIT/10 ML VIAL IV SCH (17:30)
[2019-04-17 19:05] LABS: Hematocrit 27.6 VOL% (35.7-47.0)
[2019-04-17] MEDS ORDERED: VANCOMYCIN INJ 500 MG in SODIUM CHLORIDE 0.9% 100 ML IV PRN (21:00)
[2019-04-17] MEDS: INSULIN GLARGINE 100 UNIT/ML SUBCUT SCH ×2 (21:45)
[2019-04-17] MEDS ORDERED: ACETAMINOPHEN 325 MG TABLET PO PRN (22:25)
[2019-04-17] MEDS ORDERED: CALCIUM CARBONATE CHEW 500 MG TABLET PO ONE (23:01)
[2019-04-18] MEDS: HYDROmorphone 2 MG/1 ML VIAL IV PRN ×5 (00:58→21:10)
[2019-04-18] MEDS: INSULIN LISPRO 100 UNIT/ML SUBCUT SCH ×5 (01:03→22:20)
[2019-04-18] MEDS ORDERED: VANCOMYCIN INJ 500 MG in SODIUM CHLORIDE 0.9% 100 ML IV ONE (09:00)
[2019-04-18] MEDS: carvediloL 6.25 MG TABLET PO SCH (09:58)
[2019-04-18] MEDS: PANTOPRAZOLE 40 MG VIAL IV SCH ×2 (09:58→21:14)
[2019-04-18] MEDS: PIPERACILLIN/TAZOBACTAM 3,375 MG in SODIUM CHLORIDE 0.9% 100 ML IV SCH (11:23)
[2019-04-18] MEDS: ONDANSETRON 4 MG/2 ML VIAL IV PRN (11:25)
[2019-04-18] MEDS: PROMETHAZINE 25 MG TABLET PO PRN ×2 (12:31→22:06)
[2019-04-18 13:05] LABS: Basophils # 0.1 10*3/uL (0.0-0.2); Basophils % 0.6 % (0.0-0.8); Eosinophils # 1.3 10*3/uL (0.0-0.87); Eosinophils % 9.9 % (0.00-10.9); Hematocrit 27.5 VOL% (35.7-47.0); Hemoglobin 8.9 GM/DL (12.0-16.0); Immature Granulocytes % 0.5 %; Immature Granulocytes Absolute 0.06 #; Lymphocytes # 1.4 10*3/uL (1.4-4.0); Lymphocytes % 11.2 % (21.3-54.2); Mean Corpuscular HGB Conc 32.4 GM/DL (32-36); Mean Corpuscular Volume 96.8 FL (87-102); Mean Platelet Volume 8.4 FL (9.6-12.0); Monocytes % 6.2 % (1.7-12.7); Neutrophils % 71.6 % (38.7-73.9); Platelet Count 440 T/CUMM (130-400); Red Blood Count 2.84 MC/CUMM (3.8-5.5); Red Cell Distribution Width 17.8 % (9.3-17.3); White Blood Count 12.7 T/CUMM (4-12)
[2019-04-18] MEDS: carvediloL 12.5 MG TABLET PO SCH (16:45)
[2019-04-18] MEDS: hydrOXYzine HCL 25 MG TABLET PO PRN (16:45)
[2019-04-18] MEDS: traMADol 50 MG TABLET PO PRN (19:27)
[2019-04-18] MEDS: INSULIN GLARGINE 100 UNIT/ML SUBCUT SCH (21:11)
[2019-04-19] MEDS: HYDROmorphone 2 MG/1 ML VIAL IV PRN ×3 (03:10→16:39)
[2019-04-19] MEDS: ONDANSETRON 4 MG/2 ML VIAL IV PRN (04:09)
[2019-04-19 06:16] LABS: Basophils # 0.1 10*3/uL (0.0-0.2); Basophils % 0.7 % (0.0-0.8); Eosinophils # 1.2 10*3/uL (0.0-0.87); Eosinophils % 11.4 % (0.00-10.9); Hematocrit 26.6 VOL% (35.7-47.0); Hemoglobin 8.6 GM/DL (12.0-16.0); Immature Granulocytes % 0.6 %; Immature Granulocytes Absolute 0.06 #; Lymphocytes # 1.6 10*3/uL (1.4-4.0); Mean Corpuscular HGB Conc 32.3 GM/DL (32-36); Mean Corpuscular Volume 97.1 FL (87-102); Mean Platelet Volume 8.8 FL (9.6-12.0); Monocytes % 6.2 % (1.7-12.7); Neutrophils % 66.1 % (38.7-73.9); Platelet Count 432 T/CUMM (130-400); Red Blood Count 2.74 MC/CUMM (3.8-5.5); Red Cell Distribution Width 17.4 % (9.3-17.3); White Blood Count 10.7 T/CUMM (4-12)
[2019-04-19 06:37] LABS: Calcium 9.1 MG/DL (8.5-10.1); Osmolality,Calculated 287.5 MOS/KG (273-304)
[2019-04-19 06:42] LABS: Eosinophils 15 % (0-10); Lymphocytes 16 % (20-55); Segmented Neutrophils 61 % (50-85); Total Cells Counted 100
[2019-04-19 06:43] LABS: Anisocytosis 2+; Platelet Estimate Normal; Polychromasia Slight
[2019-04-19] MEDS: INSULIN LISPRO 100 UNIT/ML SUBCUT SCH ×3 (08:09→17:11)
[2019-04-19] MEDS: traMADol 50 MG TABLET PO PRN ×2 (08:10→18:25)
[2019-04-19] MEDS: carvediloL 12.5 MG TABLET PO SCH (09:23)
[2019-04-19] MEDS: PANTOPRAZOLE 40 MG VIAL IV SCH (09:25)
[2019-04-19] MEDS ORDERED: carvediloL 25 MG TABLET PO SCH (17:00)
[2019-04-19] MEDS: PROMETHAZINE 25 MG TABLET PO PRN (18:25)
[2019-04-19 19:18] VITALS: BP 173/95
== END 2019-04-19 20:22 | disposition home or self-care (01) | DRG 73 ==
LOC: EDUNIT# → EDBD → N.ED 17:12 → N.EDINP 20:58 → SUATTDRO 20:58 → N.2E 21:39
PROVIDERS: ADMIT Internal Medicine; ATTEND Internal Medicine Cardiovascular Disease

== ENCOUNTER 2019-05-09 14:17 | Inpatient (IN) ==
[2019-05-09] MEDS ORDERED: METOCLOPRAMIDE 10 MG/2 ML VIAL IV STA (15:08)
[2019-05-09] MEDS ORDERED: ONDANSETRON 4 MG/2 ML VIAL IV STA (15:08)
[2019-05-09] MEDS ORDERED: KETOROLAC 30 MG/1 ML VIAL IV STA (15:08)
[2019-05-09] MEDS ORDERED: PANTOPRAZOLE 40 MG VIAL IV STA (15:08)
[2019-05-09] MEDS ORDERED: ORPHENADRINE 60 MG/2 ML VIAL IV STA (15:08)
[2019-05-09 16:13] LABS: Basophils # 0.1 10*3/uL (0.0-0.2); Basophils % 0.9 % (0.0-0.8); Eosinophils # 0.5 10*3/uL (0.0-0.87); Eosinophils % 4.1 % (0.00-10.9); Hemoglobin 10.1 GM/DL (12.0-16.0); Immature Granulocytes % 0.7 %; Immature Granulocytes Absolute 0.08 #; Lymphocytes % 16.3 % (21.3-54.2); Mean Corpuscular HGB Conc 31.6 GM/DL (32-36); Mean Corpuscular Volume 99.1 FL (87-102); Mean Platelet Volume 8.8 FL (9.6-12.0); NRBC # 0.02 10*3/uL; Platelet Count 651 T/CUMM (130-400); Red Blood Count 3.23 MC/CUMM (3.8-5.5); Red Cell Distribution Width 15.9 % (9.3-17.3); White Blood Count 12.1 T/CUMM (4-12)
[2019-05-09 16:27] LABS: Albumin 3.2 G/DL (3.4-5.0); Bilirubin,Total 0.6 MG/DL (0.2-1.0); Calcium 9.5 MG/DL (8.5-10.1); Osmolality,Calculated 284.9 MOS/KG (273-304); Total Protein 7.7 G/DL (6.4-8.3)
[2019-05-09] MEDS ORDERED: INSULIN REGULAR 100 UNIT/ML IV ONE ×2 (16:53→21:57)
[2019-05-09] MEDS ORDERED: hydrALAZINE 20 MG/1 ML VIAL ONE (17:08)
[2019-05-09] MEDS ORDERED: hydrALAZINE 20 MG/1 ML VIAL IV STA (17:09)
[2019-05-09] MEDS ORDERED: LABETALOL 20 MG/4 ML SYRINGE IV STA (18:08)
[2019-05-09] MEDS ORDERED: GLUCAGON 1 MG VIAL IM PRN (18:11)
[2019-05-09] MEDS ORDERED: DEXTROSE 10% 250 ML BAG IV PRN (18:11)
[2019-05-09] MEDS ORDERED: carvediloL 25 MG TABLET PO SCH (18:30)
[2019-05-09] MEDS ORDERED: KETOROLAC 30 MG/1 ML VIAL IV ONE (19:38)
[2019-05-09] MEDS ORDERED: HYDROmorphone 2 MG/1 ML VIAL IV ONE (20:30)
[2019-05-09] MEDS ORDERED: LABETALOL 20 MG/4 ML SYRINGE IV ONE (20:31)
[2019-05-09] MEDS ORDERED: INSULIN GLARGINE 100 UNIT/ML SUBCUT SCH (21:00)
[2019-05-09] MEDS ORDERED: Ferric Citrate [Auryxia] 210 MG PO SCH (21:00)
[2019-05-09] MEDS ORDERED: INSULIN LISPRO 100 UNIT/ML SUBCUT SCH (21:00)
[2019-05-09] MEDS ORDERED: INSULIN REGULAR DRIP 100 ML IV SCH (21:57)
[2019-05-09] MEDS ORDERED: SODIUM BICARB INJ 100 MEQ in STERILE WATER INJ 400 ML IV PRN (21:57)
[2019-05-09] MEDS ORDERED: SODIUM PHOSPHATE INJ 15.8 MMOL in SODIUM CHLORIDE 0.9% 250 ML IV PRN (21:57)
[2019-05-09] MEDS ORDERED: DEXTROSE 50% 25 GM/50 ML VIAL IV PRN (21:57)
[2019-05-09] MEDS ORDERED: MAGNESIUM SULF RIDER 2 GM in PREMIX 1 EACH IV PRN (21:57)
[2019-05-09] MEDS ORDERED: ENOXAPARIN 30 MG/0.3 ML SYRINGE SUBCUT SCH (22:00)
[2019-05-09] MEDS ORDERED: niCARdipine 25 MG/10 ML VIAL IV ONE (22:13)
[2019-05-09] MEDS: niCARdipine INJ 25 MG in SODIUM CHLORIDE 0.9% 240 ML IV PRN (22:20)
[2019-05-09] MEDS: ONDANSETRON 4 MG/2 ML VIAL IV PRN (22:32)
[2019-05-09 23:22] LABS: ABG Base Excess -5.5 MMOL/L (-2.5-2.5); ABG HCO3 19.9 MMOL/L (20-26); ABG Oxygen Saturation 98.7 % (95-100); ABG PCO2 25.8 MM HG (35-48); ABG PH 7.439 (7.35-7.45); ABG TCO2 15.9 MMOL/L (23-27); Allen Test Positive; Pt O2 Delivery Device Room Air
[2019-05-09 23:32] LABS: Apearance,Urine CLEAR (Clear); Bacteria,Urine Occasional /HPF (Few); Barbiturates Screen,Urine Negative (Negative); Benzodiazepines Screen,Urine Negative (Negative); Bilirubin,Urine Negative (Negative); Blood, Urine Negative (Negative); Cannabinoid Screen,Urine Negative (Negative); Glucose,Urine (UA) >=500 mg/dL (Negative); Hyaline Casts,Urine 7 /LPF (0-3); Ketones,Urine 20 mg/dL (Negative); Mucus,Urine Occasional /LPF (Occasional); Nitrite,Urine Negative (Negative); Opiate Screen,Urine Positive (Negative); Phencyclidine Screen,Urine Negative (Negative); Protein,Urine >=500 MG/DL; RBC,Urine 10 /HPF (0-4); Squamous Epithelial Cell,Urine Occasional /HPF (0-10); Urine Color Yellow (Yellow); Urine Specific Gravity 1.015 (1.001-1.035); Urine Urobilinogen < 2.0 EU/DL (0.2-1.0); WBC,Urine 10 /HPF (0-6)
[2019-05-09 23:39] LABS: Basophils # 0.1 10*3/uL (0.0-0.2); Basophils % 0.7 % (0.0-0.8); Eosinophils # 0.1 10*3/uL (0.0-0.87); Eosinophils % 0.8 % (0.00-10.9); Hematocrit 34.3 VOL% (35.7-47.0); Hemoglobin 10.9 GM/DL (12.0-16.0); Immature Granulocytes % 0.8 %; Immature Granulocytes Absolute 0.11 #; Lymphocytes # 1.8 10*3/uL (1.4-4.0); Lymphocytes % 12.9 % (21.3-54.2); Mean Corpuscular HGB Conc 31.8 GM/DL (32-36); Mean Corpuscular Volume 98.8 FL (87-102); Mean Platelet Volume 8.5 FL (9.6-12.0); Monocytes % 6.8 % (1.7-12.7); Platelet Count 692 T/CUMM (130-400); Red Blood Count 3.47 MC/CUMM (3.8-5.5); Red Cell Distribution Width 16.3 % (9.3-17.3); White Blood Count 13.8 T/CUMM (4-12)
[2019-05-09] MEDS: METOCLOPRAMIDE 10 MG TABLET PO SCH (23:42)
[2019-05-09] MEDS: PIPERACILLIN/TAZOBACTAM 3,375 MG in SODIUM CHLORIDE 0.9% 100 ML IV SCH (23:43)
[2019-05-09] MEDS ORDERED: VANCOMYCIN INJ 750 MG in SODIUM CHLORIDE 0.9% 250 ML IV PRN (23:45)
[2019-05-09] MEDS: KETOROLAC 15 MG/1 ML VIAL IV PRN (23:49)
[2019-05-10 00:06] LABS: Troponin I < 0.015 NG/ML (0.00-0.045)
[2019-05-10 00:09] LABS: Calcium 9.9 MG/DL (8.5-10.1); Osmolality,Calculated 287.1 MOS/KG (273-304)
[2019-05-10] MEDS: niCARdipine INJ 25 MG in SODIUM CHLORIDE 0.9% 240 ML IV PRN ×3 (01:54→08:31)
[2019-05-10 02:49] LABS: Basophils # 0.1 10*3/uL (0.0-0.2); Basophils % 0.6 % (0.0-0.8); Eosinophils # 0.1 10*3/uL (0.0-0.87); Eosinophils % 0.8 % (0.00-10.9); Hematocrit 31.8 VOL% (35.7-47.0); Hemoglobin 10.3 GM/DL (12.0-16.0); Immature Granulocytes % 0.7 %; Lymphocytes # 2.1 10*3/uL (1.4-4.0); Lymphocytes % 14.7 % (21.3-54.2); Mean Corpuscular HGB Conc 32.4 GM/DL (32-36); Mean Corpuscular Volume 97.8 FL (87-102); Mean Platelet Volume 8.1 FL (9.6-12.0); Monocytes % 5.7 % (1.7-12.7); NRBC # 0.03 10*3/uL; Neutrophils % 77.5 % (38.7-73.9); Platelet Count 607 T/CUMM (130-400); Red Blood Count 3.25 MC/CUMM (3.8-5.5); Red Cell Distribution Width 16.3 % (9.3-17.3); White Blood Count 14.5 T/CUMM (4-12)
[2019-05-10 03:20] LABS: Calcium 9.6 MG/DL (8.5-10.1); Osmolality,Calculated 281.8 MOS/KG (273-304)
[2019-05-10 03:23] LABS: Albumin 3.4 G/DL (3.4-5.0); Bilirubin,Total 0.6 MG/DL (0.2-1.0); Calcium 9.3 MG/DL (8.5-10.1); Osmolality,Calculated 286.4 MOS/KG (273-304)
[2019-05-10 03:30] LABS: Risk Ratio 2.14; VLDL CHOLESTEROL 18.6 MG/DL
[2019-05-10 03:31] LABS: Troponin I < 0.015 NG/ML (0.00-0.045)
[2019-05-10] MEDS ORDERED: VANCOMYCIN INJ 1,250 MG in SODIUM CHLORIDE 0.9% 250 ML IV ONE ×2 (04:00)
[2019-05-10] MEDS: traMADol 50 MG TABLET PO PRN (04:12)
[2019-05-10] MEDS: KETOROLAC 15 MG/1 ML VIAL IV PRN (06:05)
[2019-05-10 07:14] LABS: Calcium 9.6 MG/DL (8.5-10.1); Osmolality,Calculated 277.4 MOS/KG (273-304)
[2019-05-10 09:34] LABS: Calcium 9.2 MG/DL (8.5-10.1); Osmolality,Calculated 280.2 MOS/KG (273-304)
[2019-05-10] MEDS: NICOTINE 14 MG/24 HR PATCH TRANSDERM SCH (09:38)
[2019-05-10] MEDS: carvediloL 25 MG TABLET PO SCH ×2 (09:38→17:40)
[2019-05-10] MEDS: PANTOPRAZOLE 40 MG VIAL IV SCH (09:38)
[2019-05-10] MEDS: IRON (CARBONYL)/VIT C/B12/FA TABLET PO SCH (09:38)
[2019-05-10] MEDS: METOCLOPRAMIDE 10 MG TABLET PO SCH ×4 (09:41→20:08)
[2019-05-10] MEDS: PIPERACILLIN/TAZOBACTAM 3,375 MG in SODIUM CHLORIDE 0.9% 100 ML IV SCH ×2 (11:56→22:28)
[2019-05-10] MEDS ORDERED: DEXTROSE 10% 25 GM/250 ML BAG IV PRN (12:00)
[2019-05-10] MEDS ORDERED: SODIUM CHLORIDE 0.45% 1,000 ML IV SCH (12:48)
[2019-05-10 13:13] LABS: Calcium 8.6 MG/DL (8.5-10.1); Osmolality,Calculated 275.2 MOS/KG (273-304)
[2019-05-10] MEDS ORDERED: DEXTROSE 10% 250 ML BAG IV PRN (13:20)
[2019-05-10] MEDS ORDERED: GLUCAGON 1 MG VIAL IM PRN (13:20)
[2019-05-10] MEDS: INSULIN LISPRO 100 UNIT/ML SUBCUT SCH ×3 (14:19→22:27)
[2019-05-10] MEDS ORDERED: HEPARIN 10,000 UNIT/10 ML VIAL IV SCH (16:30)
[2019-05-10] MEDS ORDERED: VANCOMYCIN INJ 750 MG in SODIUM CHLORIDE 0.9% 250 ML IV ONE (17:00)
[2019-05-10] MEDS: INSULIN GLARGINE 100 UNIT/ML SUBCUT SCH (20:08)
[2019-05-10 20:27] LABS: Calcium 8.9 MG/DL (8.5-10.1)
[2019-05-10] MEDS: ONDANSETRON 4 MG/2 ML VIAL IV PRN (22:27)
[2019-05-11] MEDS: PROMETHAZINE 25 MG TABLET PO PRN ×2 (00:41→20:16)
[2019-05-11] MEDS: hydrOXYzine HCL 25 MG TABLET PO PRN ×2 (00:41→20:15)
[2019-05-11] MEDS: INSULIN LISPRO 100 UNIT/ML SUBCUT SCH ×7 (00:42→23:01)
[2019-05-11 05:14] LABS: Basophils # 0.1 10*3/uL (0.0-0.2); Basophils % 0.8 % (0.0-0.8); Eosinophils # 0.7 10*3/uL (0.0-0.87); Eosinophils % 5.8 % (0.00-10.9); Hematocrit 30.4 VOL% (35.7-47.0); Hemoglobin 9.5 GM/DL (12.0-16.0); Immature Granulocytes % 0.3 %; Immature Granulocytes Absolute 0.03 #; Lymphocytes # 3.8 10*3/uL (1.4-4.0); Lymphocytes % 32.9 % (21.3-54.2); Mean Corpuscular HGB Conc 31.3 GM/DL (32-36); Mean Platelet Volume 8.4 FL (9.6-12.0); Monocytes % 12.3 % (1.7-12.7); Neutrophils % 47.9 % (38.7-73.9); Platelet Count 548 T/CUMM (130-400); Red Blood Count 3.04 MC/CUMM (3.8-5.5); Red Cell Distribution Width 16.9 % (9.3-17.3); White Blood Count 11.5 T/CUMM (4-12)
[2019-05-11 05:36] LABS: Albumin 3.2 G/DL (3.4-5.0); Bilirubin,Total 0.4 MG/DL (0.2-1.0); Osmolality,Calculated 282.4 MOS/KG (273-304); Total Protein 7.7 G/DL (6.4-8.3)
[2019-05-11] MEDS: carvediloL 25 MG TABLET PO SCH ×2 (08:45→16:12)
[2019-05-11] MEDS: NICOTINE 14 MG/24 HR PATCH TRANSDERM SCH ×2 (08:45→10:53)
[2019-05-11] MEDS: PANTOPRAZOLE 40 MG VIAL IV SCH ×2 (09:00→10:54)
[2019-05-11] MEDS: IRON (CARBONYL)/VIT C/B12/FA TABLET PO SCH (09:01)
[2019-05-11] MEDS ORDERED: LIDOCAINE 1%/EPI INJ 20 ML VIAL ONE (09:17)
[2019-05-11] MEDS ORDERED: MIDAZOLAM 2 MG/2 ML VIAL ONE (10:25)
[2019-05-11] MEDS ORDERED: hydrALAZINE 20 MG/1 ML VIAL ONE (10:25)
[2019-05-11] MEDS ORDERED: LABETALOL 100 MG/20 ML VIAL IV ONE (10:25)
[2019-05-11] MEDS ORDERED: PROPOFOL 200 MG/20 ML VIAL IV ONE (10:25)
[2019-05-11] MEDS ORDERED: LIDOCAINE 2% 5 ML VIAL ONE (10:25)
[2019-05-11] MEDS ORDERED: SODIUM CHLORIDE 0.9% 250 ML IV ONE (10:25)
[2019-05-11] MEDS: PIPERACILLIN/TAZOBACTAM 3,375 MG in SODIUM CHLORIDE 0.9% 100 ML IV SCH ×2 (10:57→23:01)
[2019-05-11] MEDS ORDERED: DEXTROSE 50% 25 GM/50 ML VIAL IV PRN (11:30)
[2019-05-11] MEDS ORDERED: GLUCAGON 1 MG VIAL IM PRN (11:30)
[2019-05-11] MEDS: KETOROLAC 15 MG/1 ML VIAL IV PRN (14:10)
[2019-05-11] MEDS: oxyCODONE/ACETAMINOPHEN 5-325 MG TABLET PO PRN ×2 (16:12→20:16)
[2019-05-11] MEDS: INSULIN GLARGINE 100 UNIT/ML SUBCUT SCH (20:15)
[2019-05-11] MEDS: hydrALAZINE 20 MG/1 ML VIAL IV PRN (23:02)
[2019-05-12] MEDS: oxyCODONE/ACETAMINOPHEN 5-325 MG TABLET PO PRN ×5 (00:20→20:34)
[2019-05-12] MEDS: hydrALAZINE 20 MG/1 ML VIAL IV PRN ×6 (00:21→20:42)
[2019-05-12] MEDS: KETOROLAC 15 MG/1 ML VIAL IV PRN (01:24)
[2019-05-12] MEDS: INSULIN LISPRO 100 UNIT/ML SUBCUT SCH ×4 (02:48→16:40)
[2019-05-12] MEDS: hydrOXYzine HCL 25 MG TABLET PO PRN ×2 (06:07→18:14)
[2019-05-12] MEDS: PROMETHAZINE 25 MG TABLET PO PRN (06:25)
[2019-05-12] MEDS ORDERED: LABETALOL 20 MG/4 ML SYRINGE IV ONE (06:37)
[2019-05-12 06:40] LABS: Basophils # 0.1 10*3/uL (0.0-0.2); Basophils % 0.5 % (0.0-0.8); Eosinophils # 1.1 10*3/uL (0.0-0.87); Hematocrit 29.2 VOL% (35.7-47.0); Hemoglobin 9.3 GM/DL (12.0-16.0); Immature Granulocytes % 0.3 %; Immature Granulocytes Absolute 0.04 #; Lymphocytes # 3.1 10*3/uL (1.4-4.0); Mean Corpuscular HGB Conc 31.8 GM/DL (32-36); Mean Corpuscular Volume 100.3 FL (87-102); Mean Platelet Volume 8.3 FL (9.6-12.0); Monocytes % 8.4 % (1.7-12.7); Neutrophils % 56.8 % (38.7-73.9); Platelet Count 463 T/CUMM (130-400); Red Blood Count 2.91 MC/CUMM (3.8-5.5); Red Cell Distribution Width 16.8 % (9.3-17.3); White Blood Count 12.4 T/CUMM (4-12)
[2019-05-12 06:51] LABS: Albumin 2.7 G/DL (3.4-5.0); Bilirubin,Total 0.4 MG/DL (0.2-1.0); Calcium 8.7 MG/DL (8.5-10.1); Osmolality,Calculated 284.5 MOS/KG (273-304); Total Protein 6.9 G/DL (6.4-8.3)
[2019-05-12] MEDS: PANTOPRAZOLE 40 MG VIAL IV SCH (08:52)
[2019-05-12] MEDS: NICOTINE 14 MG/24 HR PATCH TRANSDERM SCH (08:53)
[2019-05-12] MEDS: IRON (CARBONYL)/VIT C/B12/FA TABLET PO SCH (08:53)
[2019-05-12] MEDS: carvediloL 25 MG TABLET PO SCH ×2 (08:53→16:50)
[2019-05-12] MEDS: PIPERACILLIN/TAZOBACTAM 3,375 MG in SODIUM CHLORIDE 0.9% 100 ML IV SCH ×2 (13:02→22:33)
[2019-05-12] MEDS ORDERED: INSULIN GLARGINE 100 UNIT/ML SUBCUT SCH (21:00)
[2019-05-13] MEDS: oxyCODONE/ACETAMINOPHEN 5-325 MG TABLET PO PRN ×3 (02:07→21:19)
[2019-05-13] MEDS: hydrALAZINE 20 MG/1 ML VIAL IV PRN ×4 (04:10→21:45)
[2019-05-13] MEDS: hydrOXYzine HCL 25 MG TABLET PO PRN ×2 (06:46→22:10)
[2019-05-13] MEDS: PROMETHAZINE 25 MG TABLET PO PRN ×2 (06:46→21:19)
[2019-05-13] MEDS: KETOROLAC 15 MG/1 ML VIAL IV PRN ×2 (06:59→18:36)
[2019-05-13] MEDS ORDERED: PANTOPRAZOLE 40 MG VIAL IV ONE (07:04)
[2019-05-13] MEDS ORDERED: METOCLOPRAMIDE 10 MG/2 ML VIAL IV ONE (07:05)
[2019-05-13] MEDS: carvediloL 25 MG TABLET PO SCH ×2 (10:41→16:19)
[2019-05-13] MEDS: INSULIN LISPRO 100 UNIT/ML SUBCUT SCH ×3 (10:41→15:57)
[2019-05-13] MEDS: PANTOPRAZOLE 40 MG VIAL IV SCH ×2 (10:42→22:23)
[2019-05-13] MEDS: NICOTINE 14 MG/24 HR PATCH TRANSDERM SCH (10:42)
[2019-05-13] MEDS: IRON (CARBONYL)/VIT C/B12/FA TABLET PO SCH (10:42)
[2019-05-13] MEDS: PIPERACILLIN/TAZOBACTAM 3,375 MG in SODIUM CHLORIDE 0.9% 100 ML IV SCH ×2 (12:19→22:10)
[2019-05-13] MEDS ORDERED: MIDAZOLAM 2 MG/2 ML VIAL ONE (12:49)
[2019-05-13] MEDS ORDERED: PROPOFOL 200 MG/20 ML VIAL IV ONE (12:49)
[2019-05-13] MEDS ORDERED: GLYCOPYRROLATE 0.4 MG/2 ML VIAL ONE (12:49)
[2019-05-13] MEDS ORDERED: LIDOCAINE 2% 5 ML VIAL ONE (12:49)
[2019-05-13] MEDS ORDERED: ONDANSETRON 4 MG/2 ML VIAL ONE (12:49)
[2019-05-13] MEDS ORDERED: SODIUM CHLORIDE 0.9% 250 ML IV ONE (12:49)
[2019-05-13] MEDS ORDERED: SEVOFLURANE 1 UNIT/15 MINUTE INH ONE (12:49)
[2019-05-13] MEDS ORDERED: fentaNYL 100 MCG/2 ML VIAL ONE (12:49)
[2019-05-13] MEDS ORDERED: VANCOMYCIN INJ 750 MG in SODIUM CHLORIDE 0.9% 250 ML IV ONE (17:00)
[2019-05-13] MEDS ORDERED: DEXTROSE 10% 25 GM/250 ML BAG IV PRN (17:45)
[2019-05-13] MEDS ORDERED: GLUCAGON 1 MG VIAL IM PRN (17:45)
[2019-05-13] MEDS: INSULIN GLARGINE 100 UNIT/ML SUBCUT SCH (21:21)
[2019-05-14] MEDS: hydrALAZINE 20 MG/1 ML VIAL IV PRN ×6 (00:12→16:17)
[2019-05-14] MEDS: oxyCODONE/ACETAMINOPHEN 5-325 MG TABLET PO PRN ×5 (02:14→21:56)
[2019-05-14] MEDS: PROMETHAZINE 25 MG TABLET PO PRN ×2 (07:34→18:36)
[2019-05-14] MEDS: INSULIN LISPRO 100 UNIT/ML SUBCUT SCH ×3 (09:01→15:47)
[2019-05-14] MEDS: IRON (CARBONYL)/VIT C/B12/FA TABLET PO SCH (09:02)
[2019-05-14] MEDS: NICOTINE 14 MG/24 HR PATCH TRANSDERM SCH (09:02)
[2019-05-14] MEDS: carvediloL 25 MG TABLET PO SCH ×2 (09:02→16:17)
[2019-05-14] MEDS: PANTOPRAZOLE 40 MG VIAL IV SCH (09:02)
[2019-05-14] MEDS: KETOROLAC 15 MG/1 ML VIAL IV PRN (09:17)
[2019-05-14] MEDS: NYSTATIN/TRIAMCINOLONE CREAM 15 GM TUBE TOP SCH ×2 (10:43→20:42)
[2019-05-14] MEDS: FLUCONAZOLE 150 MG TABLET PO SCH (12:17)
[2019-05-14] MEDS: PIPERACILLIN/TAZOBACTAM 3,375 MG in SODIUM CHLORIDE 0.9% 100 ML IV SCH ×2 (12:18→22:49)
[2019-05-14] MEDS: INSULIN GLARGINE 100 UNIT/ML SUBCUT SCH (20:36)
[2019-05-14] MEDS: hydrOXYzine HCL 25 MG TABLET PO PRN (21:56)
[2019-05-14] MEDS ORDERED: INSULIN LISPRO 100 UNIT/ML SUBCUT ONE (22:20)
[2019-05-15 01:34] LABS: Basophils # 0.1 10*3/uL (0.0-0.2); Basophils % 0.6 % (0.0-0.8); Eosinophils % 8.8 % (0.00-10.9); Hematocrit 31.3 VOL% (35.7-47.0); Hemoglobin 10.1 GM/DL (12.0-16.0); Immature Granulocytes % 0.4 %; Immature Granulocytes Absolute 0.05 #; Lymphocytes # 2.4 10*3/uL (1.4-4.0); Lymphocytes % 20.3 % (21.3-54.2); Mean Corpuscular HGB Conc 32.3 GM/DL (32-36); Mean Platelet Volume 8.6 FL (9.6-12.0); Monocytes % 8.3 % (1.7-12.7); Neutrophils % 61.6 % (38.7-73.9); Platelet Count 442 T/CUMM (130-400); Red Blood Count 3.13 MC/CUMM (3.8-5.5); Red Cell Distribution Width 16.7 % (9.3-17.3); White Blood Count 11.6 T/CUMM (4-12)
[2019-05-15 01:42] LABS: Calcium 8.9 MG/DL (8.5-10.1); Osmolality,Calculated 285.1 MOS/KG (273-304)
[2019-05-15] MEDS ORDERED: DEXTROSE 50% 25 GM/50 ML VIAL IV PRN (02:18)
[2019-05-15] MEDS ORDERED: GLUCAGON 1 MG VIAL IM PRN (02:18)
[2019-05-15] MEDS: INSULIN LISPRO 100 UNIT/ML SUBCUT SCH ×4 (02:41→18:12)
[2019-05-15] MEDS: oxyCODONE/ACETAMINOPHEN 5-325 MG TABLET PO PRN (07:41)
[2019-05-15] MEDS ORDERED: SODIUM POLYSTYRENE SULFATE 15 GM/60 ML BOTTLE PO ONE (08:53)
[2019-05-15] MEDS: IRON (CARBONYL)/VIT C/B12/FA TABLET PO SCH (09:58)
[2019-05-15] MEDS: NICOTINE 14 MG/24 HR PATCH TRANSDERM SCH (09:59)
[2019-05-15] MEDS: carvediloL 25 MG TABLET PO SCH ×2 (09:59→18:08)
[2019-05-15] MEDS: NYSTATIN/TRIAMCINOLONE CREAM 15 GM TUBE TOP SCH (10:00)
[2019-05-15] MEDS: PANTOPRAZOLE 40 MG VIAL IV SCH (10:01)
[2019-05-15] MEDS: PROMETHAZINE 25 MG TABLET PO PRN (10:09)
[2019-05-15] MEDS: FLUCONAZOLE 150 MG TABLET PO SCH ×2 (10:09→12:36)
[2019-05-15] MEDS: hydrOXYzine HCL 25 MG TABLET PO PRN (10:09)
[2019-05-15] MEDS: traMADol 50 MG TABLET PO PRN (10:09)
[2019-05-15] MEDS ORDERED: oxyCODONE/ACETAMINOPHEN 5-325 MG TABLET PO PRN (10:35)
[2019-05-15] MEDS: PIPERACILLIN/TAZOBACTAM 3,375 MG in SODIUM CHLORIDE 0.9% 100 ML IV SCH (12:14)
[2019-05-15] MEDS ORDERED: FLUCONAZOLE 100 MG TABLET PO SCH (12:15)
[2019-05-15] MEDS ORDERED: ONDANSETRON 4 MG/2 ML VIAL IV ONE (13:23)
[2019-05-15] MEDS ORDERED: CALCIUM GLUCONATE 2,000 MG in SODIUM CHLORIDE 0.9% 100 ML IV ONE (14:07)
[2019-05-15] MEDS ORDERED: ALBUTEROL NEB SOLN 5 MG/ML 20 ML/BOTTLE CONT NEB ONE (14:08)
[2019-05-15] MEDS ORDERED: SODIUM BICARBONATE 50 MEQ/50 ML VIAL IV ONE (14:08)
[2019-05-15] MEDS ORDERED: INSULIN REGULAR 100 UNIT/ML SUBCUT ONE (14:30)
[2019-05-15] MEDS ORDERED: INSULIN REGULAR 100 UNIT/ML SUBCUT SCH (14:30)
[2019-05-15] MEDS ORDERED: SODIUM BICARB INJ 50 MEQ in IV BAG 1 EACH IV ONE (14:30)
[2019-05-15 15:39] VITALS: BP 191/98
== END 2019-05-15 20:05 | disposition home health service (06) | DRG 919 ==
LOC: EDUNIT# → EDBD → N.EDINP 14:17 → N.ED 14:17 → SUATTDRO 17:52 → N.3E 19:25 → N.CC 21:31 → SUATTDRO 05-10 07:22 → N.5E 05-10 18:10
PROVIDERS: ADMIT Internal Medicine; ATTEND Internal Medicine

== ENCOUNTER 2020-06-22 19:06 | Inpatient (IN) ==
[2020-06-22] MEDS ORDERED: hydrALAZINE 20 MG/1 ML VIAL IV STA ×2 (19:47→20:26)
[2020-06-22] MEDS ORDERED: cloNIDine 0.1 MG TABLET PO STA (20:15)
[2020-06-22] MEDS ORDERED: ONDANSETRON 4 MG/2 ML VIAL IV ONE (20:26)
[2020-06-22] MEDS ORDERED: MORPHINE 4 MG/1 ML VIAL IV STA (20:26)
[2020-06-22 20:31] LABS: Basophils # 0.1 10*3/uL (0.0-0.2); Basophils % 0.7 % (0.0-0.8); Eosinophils # 0.2 10*3/uL (0.0-0.87); Eosinophils % 2.4 % (0.00-10.9); Hematocrit 38.2 VOL% (35.7-47.0); Hemoglobin 12.5 GM/DL (12.0-16.0); Immature Granulocytes % 0.3 %; Immature Granulocytes Absolute 0.03 #; Lymphocytes # 1.6 10*3/uL (1.4-4.0); Lymphocytes % 16.4 % (21.3-54.2); Mean Corpuscular HGB Conc 32.7 GM/DL (32-36); Mean Corpuscular Volume 98.5 FL (87-102); Mean Platelet Volume 8.3 FL (9.6-12.0); Monocytes % 5.1 % (1.7-12.7); Neutrophils % 75.1 % (38.7-73.9); Platelet Count 446 T/CUMM (130-400); Red Blood Count 3.88 MC/CUMM (3.8-5.5); Red Cell Distribution Width 18.5 % (9.3-17.3); White Blood Count 9.8 T/CUMM (4-12)
[2020-06-22 20:51] LABS: INR 1.3; PT Patient Result 13.6 SECS (9.8-11.9)
[2020-06-22 20:56] LABS: Albumin 3.2 G/DL (3.4-5.0); Bilirubin,Total 1.1 MG/DL (0.2-1.0); Calcium 8.7 MG/DL (8.5-10.1); Osmolality,Calculated 288.8 MOS/KG (273-304); Total Protein 7.9 G/DL (6.4-8.3)
[2020-06-22] MEDS ORDERED: DOCUSATE SODIUM 100 MG CAPSULE PO PRN (22:14)
[2020-06-22] MEDS ORDERED: GLUCAGON 1 MG VIAL IM PRN (22:14)
[2020-06-22] MEDS ORDERED: DEXTROSE 50% 25 GM/50 ML VIAL IV PRN (22:14)
[2020-06-23] MEDS: PANTOPRAZOLE 40 MG TABLET PO SCH ×2 (01:25→08:45)
[2020-06-23] MEDS: INSULIN REGULAR 100 UNIT/ML SUBCUT SCH ×5 (01:26→21:17)
[2020-06-23] MEDS: oxyCODONE/ACETAMINOPHEN 5-325 MG TABLET PO PRN ×2 (01:26→13:26)
[2020-06-23 06:51] LABS: Basophils # 0.1 10*3/uL (0.0-0.2); Basophils % 1.1 % (0.0-0.8); Eosinophils # 0.4 10*3/uL (0.0-0.87); Hematocrit 36.3 VOL% (35.7-47.0); Immature Granulocytes % 0.3 %; Immature Granulocytes Absolute 0.03 #; Lymphocytes # 2.2 10*3/uL (1.4-4.0); Lymphocytes % 24.1 % (21.3-54.2); Mean Corpuscular HGB Conc 33.1 GM/DL (32-36); Mean Corpuscular Volume 97.1 FL (87-102); Mean Platelet Volume 8.3 FL (9.6-12.0); Monocytes % 7.2 % (1.7-12.7); Neutrophils % 63.3 % (38.7-73.9); Platelet Count 450 T/CUMM (130-400); Red Blood Count 3.74 MC/CUMM (3.8-5.5); Red Cell Distribution Width 18.3 % (9.3-17.3); White Blood Count 9.1 T/CUMM (4-12)
[2020-06-23 07:24] LABS: Albumin 2.9 G/DL (3.4-5.0); Bilirubin,Total 1.2 MG/DL (0.2-1.0); Osmolality,Calculated 286.5 MOS/KG (273-304); Total Protein 7.9 G/DL (6.4-8.3)
[2020-06-23] MEDS: INSULIN LISPRO 100 UNIT/ML SUBCUT SCH ×3 (08:40→16:31)
[2020-06-23] MEDS: FUROSEMIDE 40 MG TABLET PO SCH (08:45)
[2020-06-23] MEDS: LABETALOL 200 MG TABLET PO SCH ×3 (08:45→21:17)
[2020-06-23] MEDS: METOCLOPRAMIDE 10 MG TABLET PO SCH ×2 (08:46→08:47)
[2020-06-23] MEDS: ONDANSETRON 4 MG/2 ML VIAL IV PRN (13:20)
[2020-06-24] MEDS: PROMETHAZINE 25 MG TABLET PO PRN (00:06)
[2020-06-24] MEDS: oxyCODONE/ACETAMINOPHEN 5-325 MG TABLET PO PRN ×2 (00:07→12:16)
[2020-06-24 06:29] LABS: Basophils # 0.1 10*3/uL (0.0-0.2); Basophils % 0.6 % (0.0-0.8); Eosinophils # 0.3 10*3/uL (0.0-0.87); Eosinophils % 3.1 % (0.00-10.9); Hematocrit 33.4 VOL% (35.7-47.0); Hemoglobin 10.7 GM/DL (12.0-16.0); Immature Granulocytes % 0.4 %; Immature Granulocytes Absolute 0.03 #; Lymphocytes # 1.5 10*3/uL (1.4-4.0); Lymphocytes % 18.1 % (21.3-54.2); Mean Corpuscular Volume 99.1 FL (87-102); Mean Platelet Volume 8.7 FL (9.6-12.0); Neutrophils % 72.8 % (38.7-73.9); Platelet Count 430 T/CUMM (130-400); Red Blood Count 3.37 MC/CUMM (3.8-5.5); Red Cell Distribution Width 18.1 % (9.3-17.3); White Blood Count 8.1 T/CUMM (4-12)
[2020-06-24 06:44] LABS: Calcium 8.4 MG/DL (8.5-10.1); Osmolality,Calculated 301.4 MOS/KG (273-304)
[2020-06-24] MEDS: INSULIN LISPRO 100 UNIT/ML SUBCUT SCH ×3 (07:38→15:58)
[2020-06-24] MEDS: METOCLOPRAMIDE 10 MG TABLET PO SCH (09:11)
[2020-06-24] MEDS: INSULIN REGULAR 100 UNIT/ML SUBCUT SCH ×4 (09:11→21:56)
[2020-06-24] MEDS: PANTOPRAZOLE 40 MG TABLET PO SCH (09:11)
[2020-06-24] MEDS: FUROSEMIDE 40 MG TABLET PO SCH (09:11)
[2020-06-24] MEDS: LABETALOL 200 MG TABLET PO SCH ×3 (09:12→21:56)
[2020-06-24] MEDS: ONDANSETRON 4 MG/2 ML VIAL IV PRN (10:36)
[2020-06-24] MEDS: hydrALAZINE 20 MG/1 ML VIAL IV PRN (13:07)
[2020-06-25] MEDS: oxyCODONE/ACETAMINOPHEN 5-325 MG TABLET PO PRN ×2 (00:44→18:10)
[2020-06-25] MEDS: PROMETHAZINE 25 MG TABLET PO PRN ×2 (00:47→09:33)
[2020-06-25 05:47] LABS: Basophils % 0.5 % (0.0-0.8); Eosinophils # 0.3 10*3/uL (0.0-0.87); Eosinophils % 3.4 % (0.00-10.9); Hematocrit 32.3 VOL% (35.7-47.0); Hemoglobin 10.5 GM/DL (12.0-16.0); Immature Granulocytes % 0.4 %; Immature Granulocytes Absolute 0.03 #; Lymphocytes # 1.2 10*3/uL (1.4-4.0); Lymphocytes % 15.7 % (21.3-54.2); Mean Corpuscular HGB Conc 32.5 GM/DL (32-36); Mean Corpuscular Volume 98.5 FL (87-102); Mean Platelet Volume 8.4 FL (9.6-12.0); Monocytes % 6.8 % (1.7-12.7); Neutrophils % 73.2 % (38.7-73.9); Platelet Count 356 T/CUMM (130-400); Red Blood Count 3.28 MC/CUMM (3.8-5.5); Red Cell Distribution Width 18.1 % (9.3-17.3); White Blood Count 7.9 T/CUMM (4-12)
[2020-06-25 06:16] LABS: Albumin 2.8 G/DL (3.4-5.0); Bilirubin,Total 1.4 MG/DL (0.2-1.0); Calcium 8.7 MG/DL (8.5-10.1); Osmolality,Calculated 287.5 MOS/KG (273-304); Total Protein 7.7 G/DL (6.4-8.3)
[2020-06-25] MEDS: INSULIN LISPRO 100 UNIT/ML SUBCUT SCH ×5 (07:04→20:47)
[2020-06-25] MEDS: INSULIN REGULAR 100 UNIT/ML SUBCUT SCH ×2 (08:22→12:27)
[2020-06-25] MEDS: METOCLOPRAMIDE 10 MG TABLET PO SCH (08:47)
[2020-06-25] MEDS: FUROSEMIDE 40 MG TABLET PO SCH (09:33)
[2020-06-25] MEDS: LABETALOL 200 MG TABLET PO SCH ×4 (09:33→20:55)
[2020-06-25] MEDS: PANTOPRAZOLE 40 MG TABLET PO SCH (09:33)
[2020-06-26 07:00] LABS: Basophils # 0.1 10*3/uL (0.0-0.2); Basophils % 0.8 % (0.0-0.8); Eosinophils # 0.3 10*3/uL (0.0-0.87); Eosinophils % 3.4 % (0.00-10.9); Hematocrit 36.5 VOL% (35.7-47.0); Hemoglobin 11.5 GM/DL (12.0-16.0); Immature Granulocytes % 0.5 %; Immature Granulocytes Absolute 0.04 #; Lymphocytes # 1.2 10*3/uL (1.4-4.0); Lymphocytes % 14.5 % (21.3-54.2); Mean Corpuscular HGB Conc 31.5 GM/DL (32-36); Mean Corpuscular Volume 102.5 FL (87-102); Mean Platelet Volume 8.6 FL (9.6-12.0); Monocytes % 7.2 % (1.7-12.7); Neutrophils % 73.6 % (38.7-73.9); Platelet Count 361 T/CUMM (130-400); Red Blood Count 3.56 MC/CUMM (3.8-5.5); Red Cell Distribution Width 17.9 % (9.3-17.3); White Blood Count 8.5 T/CUMM (4-12)
[2020-06-26 07:23] LABS: Bilirubin,Total 1.8 MG/DL (0.2-1.0); Calcium 8.8 MG/DL (8.5-10.1); Osmolality,Calculated 295.5 MOS/KG (273-304); Total Protein 7.9 G/DL (6.4-8.3)
[2020-06-26] MEDS: LABETALOL 200 MG TABLET PO SCH ×3 (08:31→20:40)
[2020-06-26] MEDS: FUROSEMIDE 40 MG TABLET PO SCH (08:31)
[2020-06-26] MEDS: METOCLOPRAMIDE 10 MG TABLET PO SCH (08:32)
[2020-06-26] MEDS: PANTOPRAZOLE 40 MG TABLET PO SCH (08:32)
[2020-06-26] MEDS: INSULIN LISPRO 100 UNIT/ML SUBCUT SCH ×7 (08:37→20:42)
[2020-06-26] MEDS: oxyCODONE/ACETAMINOPHEN 5-325 MG TABLET PO PRN (09:35)
[2020-06-26] MEDS: ONDANSETRON 4 MG/2 ML VIAL IV PRN (12:06)
[2020-06-26] MEDS: hydrALAZINE 20 MG/1 ML VIAL IV PRN (13:32)
[2020-06-27 05:42] LABS: Basophils # 0.1 10*3/uL (0.0-0.2); Basophils % 0.9 % (0.0-0.8); Eosinophils # 0.3 10*3/uL (0.0-0.87); Eosinophils % 4.2 % (0.00-10.9); Hematocrit 36.5 VOL% (35.7-47.0); Hemoglobin 11.1 GM/DL (12.0-16.0); Immature Granulocytes % 0.4 %; Immature Granulocytes Absolute 0.03 #; Lymphocytes # 1.9 10*3/uL (1.4-4.0); Lymphocytes % 24.7 % (21.3-54.2); Mean Corpuscular HGB Conc 30.4 GM/DL (32-36); Mean Corpuscular Volume 103.1 FL (87-102); Mean Platelet Volume 8.3 FL (9.6-12.0); Neutrophils % 61.8 % (38.7-73.9); Platelet Count 369 T/CUMM (130-400); Red Blood Count 3.54 MC/CUMM (3.8-5.5); Red Cell Distribution Width 17.9 % (9.3-17.3); White Blood Count 7.8 T/CUMM (4-12)
[2020-06-27 06:07] LABS: Albumin 2.8 G/DL (3.4-5.0); Bilirubin,Total 1.3 MG/DL (0.2-1.0); Calcium 9.4 MG/DL (8.5-10.1); Total Protein 7.7 G/DL (6.4-8.3)
[2020-06-27] MEDS: INSULIN LISPRO 100 UNIT/ML SUBCUT SCH ×9 (09:38→20:42)
[2020-06-27] MEDS: PANTOPRAZOLE 40 MG TABLET PO SCH (09:41)
[2020-06-27] MEDS: FUROSEMIDE 40 MG TABLET PO SCH (09:41)
[2020-06-27] MEDS: LABETALOL 200 MG TABLET PO SCH ×3 (09:41→20:39)
[2020-06-27] MEDS: oxyCODONE/ACETAMINOPHEN 5-325 MG TABLET PO PRN ×2 (09:48→20:40)
[2020-06-27] MEDS: METOCLOPRAMIDE 10 MG TABLET PO SCH (09:50)
[2020-06-27] MEDS: ONDANSETRON 4 MG/2 ML VIAL IV PRN (09:50)
[2020-06-27] MEDS ORDERED: TISSUE ADHESIVE 1 EACH APPLICATOR TOP ONE (15:10)
[2020-06-27] MEDS: PROMETHAZINE 25 MG TABLET PO PRN (20:39)
[2020-06-28] MEDS: oxyCODONE/ACETAMINOPHEN 5-325 MG TABLET PO PRN (13:53)
[2020-06-28] MEDS: LABETALOL 200 MG TABLET PO SCH ×3 (13:55→21:13)
[2020-06-28] MEDS: FUROSEMIDE 40 MG TABLET PO SCH (13:56)
[2020-06-28] MEDS: PANTOPRAZOLE 40 MG TABLET PO SCH (13:56)
[2020-06-28] MEDS ORDERED: CARBOXYMETHYLCELLULOSE 1% OPH SOLN BOTH EYES PRN (13:59)
[2020-06-28] MEDS: METOCLOPRAMIDE 10 MG TABLET PO SCH (14:07)
[2020-06-28] MEDS: INSULIN LISPRO 100 UNIT/ML SUBCUT SCH ×7 (17:38→21:10)
[2020-06-28] MEDS: PROMETHAZINE 25 MG TABLET PO PRN (21:09)
[2020-06-29 05:43] LABS: Basophils # 0.1 10*3/uL (0.0-0.2); Basophils % 0.9 % (0.0-0.8); Eosinophils # 0.3 10*3/uL (0.0-0.87); Eosinophils % 3.6 % (0.00-10.9); Hemoglobin 11.2 GM/DL (12.0-16.0); Immature Granulocytes % 0.8 %; Immature Granulocytes Absolute 0.06 #; Lymphocytes # 1.5 10*3/uL (1.4-4.0); Lymphocytes % 18.4 % (21.3-54.2); Mean Corpuscular HGB Conc 31.1 GM/DL (32-36); Mean Corpuscular Volume 101.1 FL (87-102); Mean Platelet Volume 8.7 FL (9.6-12.0); Monocytes % 8.3 % (1.7-12.7); Platelet Count 365 T/CUMM (130-400); Red Blood Count 3.56 MC/CUMM (3.8-5.5); Red Cell Distribution Width 17.4 % (9.3-17.3)
[2020-06-29 06:06] LABS: Albumin 2.5 G/DL (3.4-5.0); Bilirubin,Total 1.9 MG/DL (0.2-1.0); Calcium 8.3 MG/DL (8.5-10.1); Osmolality,Calculated 285.7 MOS/KG (273-304); Total Protein 6.8 G/DL (6.4-8.3)
[2020-06-29] MEDS: INSULIN LISPRO 100 UNIT/ML SUBCUT SCH ×2 (10:19→10:20)
[2020-06-29] MEDS: LABETALOL 200 MG TABLET PO SCH (10:21)
[2020-06-29] MEDS: PANTOPRAZOLE 40 MG TABLET PO SCH (10:21)
[2020-06-29] MEDS: FUROSEMIDE 40 MG TABLET PO SCH (10:26)
[2020-06-29] MEDS: METOCLOPRAMIDE 10 MG TABLET PO SCH (10:27)
[2020-06-29] MEDS: oxyCODONE/ACETAMINOPHEN 5-325 MG TABLET PO PRN (10:27)
[2020-06-29 18:33] VITALS: BP 138/92
== END 2020-06-29 20:20 | disposition home health service (06) | DRG 640 ==
LOC: N.ED 19:06 → N.EDINP 19:06 → SUATTDRO 21:35 → N.EDINP 22:58 → N.TELES 06-23 01:05 → SUATTDRO 06-25 14:47
PROVIDERS: ADMIT Internal Medicine; ATTEND Emergency Medicine